=== PATIENT | male | born 1950 | race Caucasian/White ===

== ENCOUNTER 2021-03-04 00:44 | Inpatient (IN) | payer MEDICARE ==
[2021-03-04] MEDS ORDERED: ASPIRIN 81 MG PO STA (00:59)
[2021-03-04] MEDS ORDERED: HEPARIN SODIUM 1,000 UN/ML (10ML VL) IV ONE (00:59)
[2021-03-04] MEDS ORDERED: NITROGLYCERIN SL TABS 0.4 MG TAB SUBLINGUAL PRN ×2 (00:59→04:00)
[2021-03-04] MEDS ORDERED: MORPHINE SULFATE 4 MG/ML SYRINGE IV PRN (00:59)
[2021-03-04] MEDS ORDERED: HEPARIN SOD,PORK IN 0.45% NACL 25,000 UNIT in 0.45% NACL 1 250ML.BAG IV SCH (01:00)
--- NOTE | 2021-03-04 01:10 | ED ---
Chest Pain HPI - General Chief Complaint: Chest Pain Stated Complaint: Chest Pain Time Seen by Provider: 03/04/21 00:53 Source: patient, RN notes reviewed, old records reviewed Mode of arrival: wheelchair Limitations: no limitations - History of Present Illness Initial Comments: This is a 70-year-old male DF for evaluation. Patient comes in for chest pain starting after dinner tonight. Patient has history of high blood pressure high cholesterol previous CABG. Patient has no recent travel history or sick contacts no headache, patient's presenting with chest pain no shortness of breath and no diaphoresis. Patient states this pain is bad but not as versus the first event. No fevers MD Complaint: chest pain -: hour(s) Onset: during rest, after eating Pain Location: substernal, left chest Pain Radiation: none Severity: moderate Severity scale (1-10): 6 Quality: aching, heaviness Consistency: constant Improves With: nothing Worsens With: nothing Anginal Symptoms: sense of impending doom Other Symptoms: palpitations Treatments Prior to Arrival: none - Related Data Allergies Allergy/AdvReac Type Severity Reaction Status Date / Time No Known Allergies Allergy Verified 03/04/21 00:48 Review of Systems ROS Statement: Those systems with pertinent positive or pertinent negative responses have been documented in the HPI. ROS Other: All systems not noted in ROS Statement are negative. Past Medical History Past Medical History: Hyperlipidemia, Hypertension History of Any Multi-Drug Resistant Organisms: None Reported Past Surgical History: Ablation, Coronary Bypass/CABG Past Psychological History: No Psychological Hx Reported Smoking Status: Never smoker Past Alcohol Use History: None Reported Past Drug Use History: None Reported General Exam Limitations: no limitations General appearance: alert, anxious, in distress Head exam: Present: atraumatic, normocephalic, normal inspection Eye exam: Present: normal appearance, PERRL, EOMI. Absent: scleral icterus, conjunctival injection, periorbital swelling ENT exam: Present: normal exam, mucous membranes moist Neck exam: Present: normal inspection. Absent: tenderness, meningismus, lymphadenopathy Respiratory exam: Present: normal lung sounds bilaterally. Absent: respiratory distress, wheezes, rales, rhonchi, stridor Cardiovascular Exam: Present: regular rate, normal rhythm, normal heart sounds. Absent: systolic murmur, diastolic murmur, rubs, gallop, clicks GI/Abdominal exam: Present: soft, normal bowel sounds. Absent: distended, tenderness, guarding, rebound, rigid Extremities exam: Present: normal inspection, full ROM, normal capillary refill. Absent: tenderness, pedal edema, joint swelling, calf tenderness Back exam: Present: normal inspection Neurological exam: Present: alert, oriented X3, CN II-XII intact Psychiatric exam: Present: normal affect, normal mood Skin exam: Present: warm, dry, intact, normal color. Absent: rash Course Vital Signs 03/04/21 00:45 Temperature 97.4 F L Pulse Rate 68 Respiratory 18 Rate Blood Pressure 141/89 O2 Sat by Pulse 99 Oximetry - Reevaluation(s) Reevaluation #1: 03/04/21 00:59 : Code STEMI paged on patient arrival to the ER Reevaluation #2: 03/04/21 01:11 Spoke with cardiology, where patient, [facility] is aware Reevaluation #3: 03/04/21 01:11 Patient remains calm throughout emergency department stay - Consultations Consultation #1: Spoke with cardiology will admit to the [facility] Chest Pain MDM - Differential Diagnosis AMI, ACS - MDM 70 male DF for evaluation patient Dese for evaluation of chest pain patient is on a few hours of chest pain currently that is unremitting. Patient has positive ST elevation on EKG and will be admitted to the [facility] for further cardiology evaluation management Critical Care Time Critical Care Time: Yes Total Critical Care Time: 31 Disposition Clinical Impression: Chest pain, ST elevation myocardial infarction (STEMI) Disposition: ADMITTED IP TO THIS HOSP Condition: Fair Is patient prescribed a controlled substance at d/c from ED?: No
[2021-03-04] MEDS: SODIUM CHLORIDE 0.9% 1,000 ML IV SCH ×4 (01:18→16:54)
[2021-03-04] MEDS ORDERED: ATORVASTATIN 40 MG TAB PO STA (01:25)
[2021-03-04] MEDS ORDERED: SODIUM CHLORIDE 0.9% 1,000 ML IV ONE (01:33)
--- NOTE | 2021-03-04 01:33 | XR ---
EXAM: XR Chest, 1 View CLINICAL HISTORY: ITS.REASON XR Reason: Chest Pain TECHNIQUE: Frontal view of the chest. COMPARISON: No relevant prior studies available. FINDINGS: Lungs: No significant abnormality. No consolidation. Pleural space: No significant abnormality. No pneumothorax. Heart: Borderline sized cardiomediastinal silhouette. Mediastinum: Postoperative mediastinum. Bones/joints: No acute osseous abnormality. Tubes, lines and devices: Telemetry leads overlie the patient. Upper abdomen: Elevated right hemidiaphragm. IMPRESSION: No acute cardiopulmonary process.
[2021-03-04] MEDS ORDERED: LIDOCAINE 1% INJ 10MG/ML (20 ML MDV) ONE (01:35)
[2021-03-04] MEDS ORDERED: fentaNYL (PF) 50 MCG/ML 2 ML AMP ONE (01:36)
[2021-03-04] MEDS ORDERED: LIDOCAINE 1% INJ 10MG/ML (20 ML MDV) SQ ONE (01:45)
[2021-03-04] MEDS ORDERED: fentaNYL (PF) 50 MCG/ML 2 ML AMP IV ONE ×2 (01:45)
[2021-03-04] MEDS ORDERED: MIDAZOLAM 2 MG/2 ML VIAL IV ONE (01:46)
[2021-03-04 01:51] LABS: Basophils % (A) 1 %; Eosinophils # (A) 0.2 k/uL (0-0.7); Eosinophils % (A) 4 %; HCT 42.7 % (39.0-53.0); Lymphocytes # (A) 1.9 k/uL (1.0-4.8); Lymphocytes % (A) 30 %; MCH 32.6 pg (25.0-35.0); MCHC 35.1 g/dL (31.0-37.0); Mean Platelet Volume 8.6; Monocytes # (A) 0.5 k/uL (0-1.0); Monocytes % (A) 8 %; Neutrophils # (A) 3.6 k/uL (1.3-7.7); Neutrophils % (A) 56 %; Platelet Count 173 k/uL (150-450); RDW 12.5 % (11.5-15.5); WBC 6.4 k/uL (3.8-10.6)
[2021-03-04] MEDS ORDERED: CLOPIDOGREL 75 MG TAB ONE (01:55)
[2021-03-04] MEDS ORDERED: CLOPIDOGREL 75 MG TAB PO ONE (01:57)
[2021-03-04] MEDS ORDERED: HEPARIN SODIUM 1,000 UN/ML (10ML VL) ONE (01:57)
[2021-03-04] MEDS: HEPARIN SODIUM 1,000 UN/ML (10ML VL) IV ONE ×2 (01:59→02:14)
[2021-03-04] MEDS: NITROGLYCERIN 1000MCG/10ML SYRINGE INTRACORON ONE ×2 (02:02→02:09)
[2021-03-04 02:07] LABS: Albumin 4.1 g/dL (3.5-5.0); Calcium 9.2 mg/dL (8.4-10.2); Magnesium 1.9 mg/dL (1.6-2.3); Potassium 4.5 mmol/L (3.5-5.1); Total Bilirubin 0.5 mg/dL (0.2-1.3); Total Protein 6.9 g/dL (6.3-8.2)
[2021-03-04] MEDS ORDERED: IOPAMIDOL-370 125ML BTL INJ ONE (02:29)
[2021-03-04 02:40] LABS: INR 0.9 (<1.2); Partial Thromboplastin Time 23.7 sec (22.0-30.0); Prothrombin Time 9.8 sec (9.0-12.0)
[2021-03-04] MEDS ORDERED: IOPAMIDOL-370 100ML BTL INJ ONE (02:40)
[2021-03-04 03:00] LABS: Glucose,Whole Blood 93 mg/dL (75-99)
[2021-03-04 03:02] LABS: Creatine Kinase MB 1.6 ng/mL (0.0-2.4)
--- NOTE | 2021-03-04 03:30 | CT ---
EXAM: CT Head Without Intravenous Contrast CLINICAL HISTORY: ITS.REASON CT Reason: CODE STROKE TECHNIQUE: Axial computed tomography images of the head/brain without intravenous contrast. CTDI is 49 mGy and DLP is 1158 mGy-cm. This CT exam was performed using one or more of the following dose reduction techniques: automated exposure control, adjustment of the mA and/or kV according to patient size, and/or use of iterative reconstruction technique. COMPARISON: No relevant prior studies available. FINDINGS: Brain: No hemorrhage or mass effect. Ventricles: No hydrocephalus. Bones/joints: Unremarkable. Soft tissues: Unremarkable. Sinuses: Unremarkable. Mastoid air cells: Clear. IMPRESSION: No acute hemorrhage, hydrocephalus, or mass effect.
[2021-03-04 03:35] LABS: Glucose,Whole Blood 95 mg/dL (75-99)
[2021-03-04 03:37] LABS: Troponin I 0.066 ng/mL (0.000-0.034)
[2021-03-04] MEDS ORDERED: RX INFO: IV CONTRAST WAS GIVEN 1 EACH MISC MISCELLANE PRN (03:39)
--- NOTE | 2021-03-04 03:39 | P.PRCINT ---
Percutaneous Coronary Int. - Percutaneous Coronary Intervention Percutaneous Coronary Intervention: PROCEDURES PERFORMED: Bilateral coronary angiography, aortic angiography, ESCALANTE to LAD angiography, PCI of proximal RCA with 4.0 x 18 mm Xience ADRIAN and PCI of mid to distal RCA with a 4.0 x 12 mm Xience ADRIAN INDICATION: Inferior STEMI HISTORY: Patient is a pleasant 70-year-old male with history of hypertension, paroxysmal atrial fibrillation, coronary artery disease status post CABG approximately 18 months ago who presented with chest pain which began at approximately 11 PM, 2 hours prior to arrival. He has a history of three-vessel CABG performed in [place] 18 months ago and states one of the other arteries had to 40% blockages which were not bypassed. He also had a A. fib ablation approximate 6 weeks ago which was uneventful. He was found to have inferior STEMI and catheterization laboratory was activated. CONSENT:I have discussed the risks, benefits and alternative therapies for the above-mentioned procedure and for both sedation/analgesia as well as necessary blood product administration, if indicated, as they pertain to this patient. The patient has indicated understanding and acceptance of the risks and procedures discussed. PROCEDURE: After the risks, benefits and alternatives of the above mentioned procedure explained in detail with the patient, informed consent was obtained. Patient was taken to the catheterization lab and prepped and draped in usual fashion. 1% lidocaine was used to anesthetize the right femoral artery. Using ultrasound guidance and micropuncture technique, a 6-Canadian sheath was placed in the right femoral artery using modified Seldinger technique. Left coronary angiography was performed with a 6-Canadian JL 4.0 catheter and right coronary angiography was performed with a 6-Canadian JR4 catheter in various views. A 5- Canadian pigtail catheter was advanced and aortogram was performed in the LAD projection which showed no patent SVG grafts. The decision was made to perform PCI of the RCA. A 6-Canadian AL 0.75 guide was used to engage RCA. A 0.014 BMW wire was advanced into the distal RCA. The proximal lesion was predilated with a 2.5 x 12 mm balloon. Next a 4.0 x 18 mm Xience ADRIAN was deployed. This was postdilated with a 4.0 x 12 mm noncompliant balloon. There was a mid to distal 85% RCA stenosis at the takeoff of an acute marginal branch. This was treated with a 4.0 x 12 mm Xience ADRIAN with the help of a Guideliner. The stent was postdilated with a 4.0 x 18 mm balloon. Preintervention there was 100% stenosis with RHETT 0 flow and post intervention there was 0% stenosis with RHETT 3 flow. The right femoral angiogram showed anatomy compatable with closure and a 6Fr Angioseal was placed with hemostasis achieved. The patient tolerated the procedure well however was noted to be confused toward the end of the procedure, no focal neurologic deficits however a difference compared with earlier in the case, A+O to person and hospital however unable to tell why he came to hospital. Patient was transported back to the CT scan and then to ICU in stable condition. Conscious Sedation: Patient was monitored under the direct supervision of vision of myself for conscious sedation using Versed and fentanyl for a total duration of 74 minutes HEMODYNAMICS: Aorta: 110/64 SELECTIVE CORONARY ARTERIOGRAPHY: LEFT MAIN: The left main is a large caliber vessel which bifurcates into the LAD and circumflex. There is 10- 20% distal left main stenosis. LEFT ANTERIOR DESCENDING CORONARY ARTERY: LAD is a large caliber vessel which wraps around to the apex. There is a proximal 95% LAD stenosis. The LAD gives off a high diagonal 1 branch and then very close by gives off a second diagonal 2 branch. Diagonal 1 appears to have a proximal 70% stenosis. Diagonal to appears to have a 50% proximal stenosis. There is competitive flow of the mid to distal LAD with mild luminal irregularities of the mid to distal LAD. There is no competitive flow noted in the diagonal branches. LEFT CIRCUMFLEX CORONARY ARTERY: Left circumflex is a moderate caliber vessel which has a proximal 90% stenosis involving the OM 1 branch and the more distal circumflex. OM1 branch has a mid 70% stenosis, likely the area of previous bypass with what appears to be tenting of the area. There is no competitive flow noted to the circumflex or OM1. The more distal circumflex gives off 2 small caliber OM 2 and 3 branches. RIGHT CORONARY ARTERY: The right coronary artery is a large caliber vessel which gives off a PDA and PLV branch and is the dominant vessel. There is 100% proximal RCA stenosis. There is an 85% mid to distal RCA stenosis at the level of a small caliber acute marginal branch. SVG to OM1: occluded SVG to diagonal branch: occluded ESCALANTE to LAD: widely patent, there is backfilling of a diagonal 2 branch. Mild luminal irregularities of the distal LAD. AORTOGRAM: There is no dissection or aneurysm. There is no aortic insufficiency. There are no SVG grafts noted. FINAL IMPRESSION: 1. Inferior STEMI s/p PCI of proximal RCA with 4.0 x 18 mm Xience ADRIAN and PCI of mid to distal RCA with a 4.0 x 12 mm Xience ADRIAN 2. CAD as described above including 95% proximal LAD, diagonal 1 70% stenosis, circumflex 90% stenosis and OM1 70% stenosis. 3. Patent ESCALANTE to LAD with SVG x 2 occluded by aortogram 4. Confusion noted to be worse during procedure, no focal deficit. Rule out CVA vs metabolic, anesthetic. PLAN: 1. Aggressive risk factor modification per most recent ACC/AHA guidelines. 2. Continue triple therapy for 1 month then would decrease to Plavix and NOAC for 12 months. 3. Code stroke called and will pursue work up of possible CVA with altered mental status.
[2021-03-04] MEDS ORDERED: ATROPINE SULFATE 0.1 MG/ML 10ML SYRINGE IV PRN (04:00)
[2021-03-04] MEDS ORDERED: MAG HYDROX/AL HYDROX/SIMETH 30 ML CUP PO PRN (04:00)
[2021-03-04 04:30] LABS: Albumin 3.9 g/dL (3.5-5.0); Calcium 8.9 mg/dL (8.4-10.2); Potassium 4.4 mmol/L (3.5-5.1); Total Bilirubin 0.6 mg/dL (0.2-1.3); Total Protein 6.6 g/dL (6.3-8.2)
[2021-03-04] MEDS: ACETAMINOPHEN TAB 325 MG TAB PO PRN ×4 (05:52→20:52)
[2021-03-04] MEDS ORDERED: ONDANSETRON 4 MG/2 ML VIAL IVP PRN (09:24)
[2021-03-04] MEDS: ATORVASTATIN 80 MG TAB PO SCH (09:44)
[2021-03-04] MEDS: ASPIRIN 81 MG PO SCH (09:44)
[2021-03-04] MEDS: CLOPIDOGREL 75 MG TAB PO SCH (09:44)
[2021-03-04] MEDS: METOPROLOL TARTRATE 25 MG TAB PO SCH ×2 (09:57→20:51)
[2021-03-04 10:23] VITALS: BMI 29.7
[2021-03-04 10:34] LABS: Cholesterol 130 mg/dL (<200); HDL Cholesterol 30 mg/dL (40-60); LDL Cholesterol,Calculated 72 mg/dL (0-99); Triglycerides 140 mg/dL (<150)
--- NOTE | 2021-03-04 10:53 | P.CNNES ---
History of Present Illness Consult date: 03/04/21 Requesting physician: Anahi Penn Reason for Consult: code stroke History of Present Illness: This is a 70-year-old gentleman with medical history of hypertention, dyslipidemia, coronary artery disease status post CABG 2018), cardiac ablation (6 weeks ago) who presented that to the emergency department on 03/04/2021 for chest pain. It was noted that the patient had a STEMI and he underwent PCI on 03/04/2021. During the procedure was noted the patient had worsening of his confusion as a result a stroke code was activated to rule out whether it was truly a stroke versus metabolic versus anesthetic use. Per the patient's nurse patient received morphine preoperatively, 25 g of fentanyl and 1 mg of the Versed. He shouldn't the received IV contrast intraoperatively and the BUN was 20 and a creatinine was 1.17 post op Per the overnight nurse he stated the patient had confusion and upper extremity ataxia. As a result CT of the head was done and there was a reported as no acute hemorrhage, hydrocephalus or mass effect. It seems that the patient has history of hallucination and confusion but it got worse postop. NIH was reevaluated it was a 0. Since was 0 and had recent procedure no IV tpa. No CTA head or neck were performed. Patient denies any history of strokes or TIAs in the past. He feels he is back to baseline. He stated that in the past when he was on no cortical he was having hallucination while sleeping and then once he was off of that he had no further hallucination. Patient home medication is aspirin 81 daily, Lipitor 40 mg daily at bedtime, Xarelto 25 mg daily at bedtime metoprolol, losartan and Benadryl. Some other workup consisted of: Initial troponin was 0.06 and a repeat it was 6.1 around 332 and around 737 it was at 13.7. The POC glucose is 93 and last one was 95. Coagulation study: Initial: PT: I 0.8, INR 0.9, PTT of 23.7. The last PTT is at 52.1. Coronavirus PCR is not detected. Review of Systems Review of system: The 12 point system was reviewed and apparent positive and negative per HPI. Past Medical History Past Medical History: Hyperlipidemia, Hypertension History of Any Multi-Drug Resistant Organisms: None Reported Past Surgical History: Ablation, Coronary Bypass/CABG Additional Past Surgical History / Comment(s): CABG (December,), Ablation (December,). Past Anesthesia/Blood Transfusion Reactions: Previous Problems w/ Anesthesia Additional Past Anesthesia/Blood Transfusion Reaction / Comment(s): "i like to stay asleep" Past Psychological History: No Psychological Hx Reported Smoking Status: Never smoker Past Alcohol Use History: None Reported Past Drug Use History: None Reported - Past Family History Father Family Medical History: Cancer Additional Family Medical History / Comment(s): skin cancer Mother Additional Family Medical History / Comment(s): "two intestine blockages". Son(s) Family Medical History: Diabetes Mellitus Additional Family Medical History / Comment(s): type one Medications and Allergies Home Medications Medication Instructions Recorded Confirmed Type Aspirin EC [Ecotrin Low Dose] 81 mg PO DAILY 03/04/21 03/04/21 History Atorvastatin [Lipitor] 80 mg PO DAILY #90 tab 03/04/21 Rx Clopidogrel [Plavix] 75 mg PO DAILY #90 tab 03/04/21 Rx Losartan [Cozaar] 12.5 mg PO BID 03/04/21 03/04/21 History Metoprolol Tartrate [Lopressor] 25 mg PO BID 03/04/21 03/04/21 History Rivaroxaban [Xarelto] 20 mg PO HS 03/04/21 03/04/21 History diphenhydrAMINE HCL [Benadryl] 25 mg PO HS 03/04/21 03/04/21 History Allergies Allergy/AdvReac Type Severity Reaction Status Date / Time No Known Allergies Allergy Verified 03/04/21 07:03 Physical Examination - Vital Signs Vital Signs: Vital Signs Temp Pulse Resp BP Pulse Ox 03/04/21 07:00 67 17 110/77 99 03/04/21 06:30 66 15 117/75 98 03/04/21 06:00 67 14 98 03/04/21 05:50 62 17 98 03/04/21 05:40 63 12 121/76 98 03/04/21 05:30 62 11 L 124/79 98 03/04/21 05:20 53 L 7 L 124/79 98 03/04/21 05:10 66 13 124/79 98 03/04/21 05:00 62 6 L 131/82 98 03/04/21 04:50 61 10 L 131/82 99 03/04/21 04:40 61 11 L 131/82 97 03/04/21 04:30 65 8 L 132/90 97 03/04/21 04:20 71 20 98 03/04/21 04:10 65 12 132/90 97 03/04/21 04:00 59 L 11 L 98 03/04/21 03:50 64 16 145/83 99 03/04/21 03:40 97.5 F L 67 16 143/79 98 03/04/21 03:31 74 13 03/04/21 00:45 97.4 F L 68 18 141/89 99 Intake and Output 03/03/21 03/04/21 03/04/21 22:59 06:59 14:59 Intake Total 325 75 Output Total 0 0 Balance 325 75 Intake: IV 325 75 Sodium Chloride 0.9% 1, 225 75 000 ml @ 75 mls/hr IV . [id number] [facility] Rx#:[id number] Output: Urine 0 0 Other: Weight 96.8 kg GENERAL: The patient is lying in bed and is not in acute distress. CHEST: The heart rate is regular rate rhythm. No murmurs to auscultation. No carotid bruit bilaterally. LUNG: Clear to auscultation bilaterally no wheezing noted throughout. Not labored breathing. ABDOMEN/GI: Bowel sounds present in all 4 quadrants. No tenderness to palpation throughout. NEUROLOGICAL: Higher mental function: The patient is awake, alert, oriented to self, place and time. Patient is following commands. No aphasia and no neglect. Cranial nerves: The pupils are round, equal and reactive to light and accommodation. Visual broussard are full to confrontation throughout. Extraocular movement is intact no nystagmus is noted. Facial sensation is normal to touch throughout. The facial strength is normal throughout. Hearing is normal bilaterally to hand rub. Tongue is midline and moved [id number] without any difficulty. No dysarthria is noted. Shoulder shrug is normal bilaterally. Motor: The strength is 5 over 5 throughout. Normal tone and bulk. Cerebellum: Normal finger to nose heel to chin bilaterally. Sensation: Sensation is normal to touch throughout. Reflexes (right/left): 2+ throughout-. Plantars are downgoing bilaterally. Results - Laboratory Findings CBC and BMP: 03/04/21 01:10 03/04/21 03:32 Abnormal Lab Findings: Abnormal Labs 03/04/21 03/04/21 03/04/21 01:10 01:10 03:32 APTT BUN 21 H Glucose 126 H AST Troponin I 0.066 H* 6.110 H* 03/04/21 03/04/21 03/04/21 03:32 03:32 07:37 APTT 52.1 H BUN Glucose 118 H AST 86 H Troponin I 13.700 H* Assessment and Plan Assessment: Episode of transient confusion and ataxia of upper extremity that resolved seems due to medication effect (morphine, fentanyl and ativan)-->toxic encephalopathy. Cannot rule out TIA from cardioembolic (result of procedure especially with ataxia)) Inferior STEMI status post PCI (03/04/2021) Coronary artery disease status post CABG (2018) History of cardiac ablation 6 weeks ago Hyperlipidemia Hypertension Plan: CT of the head was done and there was a reported as no acute hemorrhage, hydrocephalus or mass effect. Currently the patient is on aspirin 81 mg, Plavix 75 mg as well as Lipitor 80 mg daily and he is on them from cardiac perspective which should be sufficient coverage from neurological stand point for secondary stroke prophylaxis (from neurological perspective dual antiplatelets for 21 days then after that to be only on Plavix but will defer that to cardiology team if they want dual antiplateletes). He is also on a heparin drip and will defer management to cardiology team. He is on home Xarelto so will defer use of it to cardiology team. 2-D echo, lipid panel were ordered by the cardiology team are pending I ordered TSH and I consulted the physical therapy night and patient therapy. I ordered carotid duplex. Continue cardiac monitoring. Please avoid any sedative/opiates that will affect patient neurological status. Will defer the rest of the medical management to the cardiology team. The plan is discussed with the cardiology team. Thank you for the consult Boby Garner MD Neuro-Hospitalist Time with Patient: Greater than 30
--- NOTE | 2021-03-04 11:00 | ECHOF ---
Referral Reason: MEASUREMENTS -------- HEIGHT: 180.3 cm WEIGHT: 93.0 kg BP: RVIDd: 3.0 cm (< 3.3) IVSd: 1.1 cm (0.6 - 1.1) LVIDd: 4.7 cm (3.9 - 5.3) LVPWd: 1.2 cm (0.6 - 1.1) IVSs: 1.5 cm LVIDs: 3.9 cm LVPWs: 1.1 cm Ao Diam: 3.7 cm (2.0 - 3.7) AV Cusp: 1.9 cm (1.5 - 2.6) LA Diam: 2.8 cm (2.7 - 3.8) MV EXCURSION: 12.495 mm (> 18.000) MV EF SLOPE: 84 mm/s (70 - 150) EPSS: 1.5 cm MV E Wil: 0.66 m/s MV DecT: 182 ms MV A Wil: 0.44 m/s MV E/A Ratio: 1.52 RAP: 5.00 mmHg RVSP: 18.26 mmHg FINDINGS -------- The left ventricular size is normal. There is mild concentric left ventricular hypertrophy. Overa ll left ventricular systolic function is mildly impaired with, an EF between 45 - 50 %. Basal infer ior LV wall motion is hypokinetic. Basal inferoseptal LV wall motion is hypokinetic. The right ventricle is normal in size. The left atrial size is normal. The right atrial size is normal. The aortic valve is trileaflet and appears structurally normal. The mitral valve is normal. There is trace mitral regurgitation. The tricuspid valve appears structurally normal. Trace tricuspid regurgitation present. Right aba tricular systolic pressure is normal at < 35 mmHg. There is no pulmonic regurgitation present. The aortic root size is normal. IVC Not well visulized. There is no pericardial effusion. CONCLUSIONS -------- 1. The left ventricular size is normal. 2. There is mild concentric left ventricular hypertrophy. 3. Overall left ventricular systolic function is mildly impaired with, an EF between 45 - 50 %. 4. Basal inferior LV wall motion is hypokinetic. 5. Basal inferoseptal LV wall motion is hypokinetic. 6. There is trace mitral regurgitation. 7. Trace tricuspid regurgitation present. 8. There is no pericardial effusion. BATTERY SERVICE TECHNICIAN: Shivani Tony RDCS
--- NOTE | 2021-03-04 11:44 | P.PN ---
Subjective This is a pleasant 70-year-old F medical history significant for coronary artery disease status post bypass grafting while living in [place] 18 months ago with ESCALANTE to LAD, SVG to OM and SVG to D1, paroxysmal atrial fibrillation status post ablation 6 weeks ago, hypertension and dyslipidemia. He follows with Dr. Rodriguez in [facility]. He presented to the ER overnight with symptoms of chest pain and was found to be having an inferior wall PR. He underwent cardiac catheterization revealing 100% occluded proximal RCA, 95% proximal LAD, 70% D1, 90% circumflex, 70% OM1, patent ESCALANTE to LAD, SVGs both occluded. He underwent successful PCI of the proximal RCA. During the procedure he developed confusion. Code stroke was called. Brain CT was unremarkable. Neurology is following. His mentation has improved and is back to baseline. According to the patient he has had this happen before with sedation. Repeat EKG this morning revealed sinus mechanism with improvement of ST changes inferiorly and left bundle type PVC's. Blood pressure 122/79 heart rate 64 afebrile maintaining oxygen saturation on nasal cannula. Laboratory data reviewed, sodium 138, potassium 4.4, creatinine 1.17, troponin trend 0.0 66, 6.11 and 13.7. TSH 3.05. Currently maintained on aspirin 81 mg daily, atorvastatin 80 mg daily, Plavix 75 mg daily and Lopressor 25 mg twice a day. GENERAL: Well-appearing, well-nourished and in no acute distress. NECK: Supple without JVD or thyromegaly. LUNGS: Breath sounds clear to auscultation bilaterally. Respiration equal and unlabored. No wheezes, rales or rhonchi. HEART: Regular rate and rhythm without murmurs, rubs or gallops. S1 and S2 heard. EXTREMITIES: Normal range of motion, no edema. No clubbing or cyanosis. Peripheral pulses intact. Right femoral access site soft, nontender with no evidence of hematoma, ecchymosis or ASSESSMENT Acute inferior wall ST elevated myocardial infarction Coronary artery disease status post bypass grafting Hypertension Dyslipidemia Paroxysmal atrial fibrillation status post ablation PLAN Obtain 2-D echocardiogram and Doppler study to assess cardiac structure and function. 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 Chada-VASC score is 2, consider resuming Xarelto tomorrow if he remains hemodynamically stable. He will likely be on triple therapy for 30 days then discontinue aspirin. Resume losartan 12.5 mg daily tomorrow. Further recommendations to follow based upon clinical course. Nurse Practitioner note has been reviewed, I agree with a documented findings and plan of care. Patient was seen and examined. Objective - Vital Signs Vital signs: Vital Signs Temp 97.5 F L 03/04/21 03:40 Pulse 67 03/04/21 07:00 Resp 17 03/04/21 07:00 BP 110/77 03/04/21 07:00 Pulse Ox 99 03/04/21 07:00 Intake & Output 03/03/21 03/04/21 03/04/21 18:59 06:59 18:59 Intake Total 325 75 Output Total 0 0 Balance 325 75 Weight 96.8 kg Intake: IV 325 75 Sodium Chloride 0.9% 1, 225 75 000 ml @ 75 mls/hr IV . [id number] [facility] Rx#:[id number] Output: Urine 0 0 - Labs CBC & Chem 7: 03/04/21 01:10 03/04/21 03:32 Labs: Abnormal Lab Results - Last 24 Hours (Table) 03/04/21 03/04/21 03/04/21 Range/Units 01:10 01:10 03:32 APTT (22.0-30.0) sec BUN 21 H (9-20) mg/dL Glucose 126 H (74-99) mg/dL AST (17-59) U/L Troponin I 0.066 H* 6.110 H* (0.000-0.034) ng/mL 03/04/21 03/04/21 03/04/21 Range/Units 03:32 03:32 07:37 APTT 52.1 H (22.0-30.0) sec BUN (9-20) mg/dL Glucose 118 H (74-99) mg/dL AST 86 H (17-59) U/L Troponin I 13.700 H* (0.000-0.034) ng/mL
--- NOTE | 2021-03-04 13:03 | US ---
EXAMINATION TYPE: US carotid duplex BILAT DATE OF EXAM: 03/04/2021 COMPARISON: NONE CLINICAL HISTORY: tia. EXAM MEASUREMENTS: RIGHT: Peak Systolic Velocity (PSV) cm/sec ----- Right CCA: 96.8 ----- Right ICA: 69.3 ----- Right ECA: 87.4 ICA/CCA ratio: 0.7 RIGHT: End Diastole cm/sec ----- Right CCA: 19.5 ----- Right ICA: 15.7 ----- Right ECA: 0.0 LEFT: Peak Systolic Velocity (PSV) cm/sec ----- Left CCA: 87.2 ----- Left ICA: 89.2 ----- Left ECA: 92.5 ICA/CCA ratio: 1.0 LEFT: End Diastole cm/sec ----- Left CCA: 10.3 ----- Left ICA: 20.9 ----- Left ECA: 13.3 VERTEBRALS (direction of flow): Right Vertebral: Antegrade Left Vertebral: Antegrade Mild plaque with no significant velocity elevations. IMPRESSION: 1. Mild atherosclerotic plaque with no significant hemodynamic stenosis as visualized. Criteria for Assigning % of Stenosis / Diameter reduction (Estimation based on the indirect measurements of the internal carotid artery velocities (ICA PSV). 1. Normal (no stenosis)=ICA PSV < 125 cm/s: ratio < 2.0: ICA EDV<40 cm/s. 2. Less than 50% stenosis=ICA PSV < 125 cm/s: ratio < 2.0: ICA EDV<40 cm/s. 3. 50 to 69% stenosis=ICA PSV of 125 to 230 cm/s: ration 2.0 ? 4.0: ICA EDV 40-100 cm/s. 4. Greater than 70% stenosis to near occlusion= ICA PSV > 230 cm/s: ratio > 4.0: ICA EDV > 100 cm/s. 5. Near occlusion= ICA PSV velocities may be low or undetectable: variable ratio and ICA EDV. 6. Total occlusion=unable to detect flow.
--- NOTE | 2021-03-04 14:29 | P.HPCAR ---
History of Present Illness This is Dr. Oglesby dictating an H/P on this patient The patient was interviewed and examined IMPRESSION / ASSESSMENT: Acute inferior wall WI, ST elevation History of coronary artery bypass grafting about 1-1/2 years back in [place] Mild Hypertension History of atrial fibrillation (unknown whether paroxysmal a persistent) status post ablation to 3 months back in [place] TONA VASC score is at least 2, likely 3 PLAN: Proceed with urgent coronary angiography. Discussed with the patient Femoral approach Patient states that in [place]. Problems with the radial approach access HPI Impression started experiencing a burning discomfort in the chest around suppertime. The discomfort persisted and later he had interscapular discomfort Aspirin and pain medications did not help. GI medications did not help His thought he did not look good and brought him to the hospital In the hospital the EKG showed ST elevation in the inferior leads with ST depression in V1 and V2 and subtle ST depressions in lead 1 and aVL ROS: No fever chills or rigors, no cough, phlegm or expectoration, no nausea, vomiting or diarrhea, no hematuria, dysuria, no musculoskeletal complaints, no strokes or seizures, no skin lesions. EXAMINATION: 141/89, 143/79 Breath sounds are clear no rhonchi no crackles Heart sounds S1 and S2 are normal Abdomen soft nontender Extremities warm no edema REVIEW OF LABS, ECG & MEDICAL DATA COVID Negative Past history of coronary artery bypass grafting 18 months back in [place] Patient is on losartan, low-dose, likely mild hypertension He is on Cardizem drip to medical treatment He is on xarelto was told to stop Xarelto 2 months after his A. fib ablation He took it last night Physical Exam Vitals: Vital Signs Temp Pulse Resp BP Pulse Ox 03/04/21 10:00 64 10 L 122/79 96 03/04/21 09:00 68 16 103/78 97 03/04/21 08:00 98.2 F 63 11 L 135/63 96 03/04/21 07:00 67 17 110/77 99 03/04/21 06:30 66 15 117/75 98 03/04/21 06:00 67 14 98 03/04/21 05:50 62 17 98 03/04/21 05:40 63 12 121/76 98 03/04/21 05:30 62 11 L 124/79 98 03/04/21 05:20 53 L 7 L 124/79 98 03/04/21 05:10 66 13 124/79 98 03/04/21 05:00 62 6 L 131/82 98 03/04/21 04:50 61 10 L 131/82 99 03/04/21 04:40 61 11 L 131/82 97 03/04/21 04:30 65 8 L 132/90 97 03/04/21 04:20 71 20 98 03/04/21 04:10 65 12 132/90 97 03/04/21 04:00 59 L 11 L 98 03/04/21 03:50 64 16 145/83 99 03/04/21 03:40 97.5 F L 67 16 143/79 98 03/04/21 03:31 74 13 03/04/21 00:45 97.4 F L 68 18 141/89 99 Intake and Output 03/03/21 03/04/21 03/04/21 22:59 06:59 14:59 Intake Total 325 300 Output Total 0 300 Balance 325 0 Intake: IV 325 300 Sodium Chloride 0.9% 1, 225 300 000 ml @ 75 mls/hr IV . [id number] [facility] Rx#:[id number] Output: Urine 0 300 Other: # Voids 1 Weight 96.8 kg 96.8 kg Past Medical History Past Medical History: Hyperlipidemia, Hypertension History of Any Multi-Drug Resistant Organisms: None Reported Past Surgical History: Ablation, Coronary Bypass/CABG Additional Past Surgical History / Comment(s): CABG (December,), Ablation (December,). Past Anesthesia/Blood Transfusion Reactions: Previous Problems w/ Anesthesia Additional Past Anesthesia/Blood Transfusion Reaction / Comment(s): "i like to stay asleep" Past Psychological History: No Psychological Hx Reported Smoking Status: Never smoker Past Alcohol Use History: None Reported Past Drug Use History: None Reported - Past Family History Father Family Medical History: Cancer Additional Family Medical History / Comment(s): skin cancer Mother Additional Family Medical History / Comment(s): "two intestine blockages". Son(s) Family Medical History: Diabetes Mellitus Additional Family Medical History / Comment(s): type one Physical Examination Vital Signs Temp Pulse Resp BP Pulse Ox 03/04/21 10:00 64 10 L 122/79 96 03/04/21 09:00 68 16 103/78 97 03/04/21 08:00 98.2 F 63 11 L 135/63 96 03/04/21 07:00 67 17 110/77 99 03/04/21 06:30 66 15 117/75 98 03/04/21 06:00 67 14 98 03/04/21 05:50 62 17 98 03/04/21 05:40 63 12 121/76 98 03/04/21 05:30 62 11 L 124/79 98 03/04/21 05:20 53 L 7 L 124/79 98 03/04/21 05:10 66 13 124/79 98 03/04/21 05:00 62 6 L 131/82 98 03/04/21 04:50 61 10 L 131/82 99 03/04/21 04:40 61 11 L 131/82 97 03/04/21 04:30 65 8 L 132/90 97 03/04/21 04:20 71 20 98 03/04/21 04:10 65 12 132/90 97 03/04/21 04:00 59 L 11 L 98 03/04/21 03:50 64 16 145/83 99 03/04/21 03:40 97.5 F L 67 16 143/79 98 03/04/21 03:31 74 13 03/04/21 00:45 97.4 F L 68 18 141/89 99 Intake and Output 03/03/21 03/04/21 03/04/21 22:59 06:59 14:59 Intake Total 325 300 Output Total 0 300 Balance 325 0 Intake: IV 325 300 Sodium Chloride 0.9% 1, 225 300 000 ml @ 75 mls/hr IV . [id number] [facility] Rx#:[id number] Output: Urine 0 300 Other: # Voids 1 Weight 96.8 kg 96.8 kg Results 03/04/21 01:10 03/04/21 03:32 Cardiac Enzymes 03/04/21 03/04/21 03/04/21 Range/Units 01:10 01:10 03:32 AST 32 (17-59) U/L CK-MB (CK-2) 1.6 (0.0-2.4) ng/mL Troponin I 0.066 H* 6.110 H* (0.000-0.034) ng/mL 03/04/21 03/04/21 Range/Units 03:32 07:37 AST 86 H (17-59) U/L CK-MB (CK-2) (0.0-2.4) ng/mL Troponin I 13.700 H* (0.000-0.034) ng/mL Coagulation 03/04/21 03/04/21 Range/Units 01:10 03:32 PT 9.8 (9.0-12.0) sec APTT 23.7 52.1 H (22.0-30.0) sec Lipids 03/04/21 Range/Units 01:13 Triglycerides 140 (<150) mg/dL Cholesterol 130 (<200) mg/dL HDL Cholesterol 30 L (40-60) mg/dL CBC 03/04/21 Range/Units 01:10 WBC 6.4 (3.8-10.6) k/uL RBC 4.60 (4.30-5.90) m/uL Hgb 15.0 (13.0-17.5) gm/dL Hct 42.7 (39.0-53.0) % Plt Count 173 (150-450) k/uL Comprehensive Metabolic Panel 03/04/21 03/04/21 Range/Units 01:10 03:32 Sodium 137 138 (137-145) mmol/L Potassium 4.5 4.4 (3.5-5.1) mmol/L Chloride 103 105 (98-107) mmol/L Carbon Dioxide 29 23 (22-30) mmol/L BUN 21 H 20 (9-20) mg/dL Creatinine 1.21 1.17 (0.66-1.25) mg/dL Glucose 126 H 118 H (74-99) mg/dL Calcium 9.2 8.9 (8.4-10.2) mg/dL AST 32 86 H (17-59) U/L ALT 30 30 (4-49) U/L Alkaline Phosphatase 114 119 (38-126) U/L Total Protein 6.9 6.6 (6.3-8.2) g/dL Albumin 4.1 3.9 (3.5-5.0) g/dL Current Medications Generic Name Dose Route Start Last Admin Trade Name Freq PRN Reason Stop Dose Admin Acetaminophen 650 mg 03/04/21 05:10 03/04/21 12:24 Acetaminophen Tab 325 Mg Tab PO 650 mg Q4HR PRN Administration Fever and/ or Pain Al Hydroxide/Mg Hydroxide 30 ml 03/04/21 04:00 Mag Hydrox/Al Hydrox/Simeth 30 Ml Cup PO Q4HR PRN Heartburn Aspirin 81 mg 03/04/21 09:00 03/04/21 09:44 Aspirin 81 Mg PO 81 mg DAILY KARLA Administration Atorvastatin Calcium 80 mg 03/04/21 09:00 03/04/21 09:44 Atorvastatin 80 Mg Tab PO 80 mg DAILY KARLA Administration Atropine Sulfate 0.5 mg 03/04/21 04:00 Atropine Sulfate 0.1 Mg/Ml 10ml Syringe IV ONCE PRN Symptomatic Bradycardia Clopidogrel Bisulfate 75 mg 03/04/21 09:00 03/04/21 09:44 Clopidogrel 75 Mg Tab PO 75 mg DAILY KARLA Administration Sodium Chloride 1,000 mls @ 100 mls/hr 03/04/21 01:00 03/04/21 09:38 Saline 0.9% IV Not Given .Q10H KARLA Sodium Chloride 1,000 mls @ 75 mls/hr 03/04/21 03:45 03/04/21 05:52 Saline 0.9% IV 75 mls/hr .[id number] KARLA Administration Losartan Potassium 12.5 mg 03/05/21 09:00 Losartan 25 Mg Tab PO DAILY KARLA Metoprolol Tartrate 25 mg 03/04/21 09:00 03/04/21 09:57 Metoprolol Tartrate 25 Mg Tab PO 25 mg BID KARLA Administration Miscellaneous Information 1 each 03/04/21 03:39 Rx Info: Iv Contrast Was Given 1 Each Misc MISCELLANE 03/06/21 03:39 DAILY PRN Per Protocol Morphine Sulfate 4 mg 03/04/21 00:59 03/04/21 01:18 Morphine Sulfate 4 Mg/Ml Syringe IV 4 mg Q4HR PRN Administration Chest Pain Nitroglycerin 0.4 mg 03/04/21 00:59 03/04/21 01:19 Nitroglycerin Sl Tabs 0.4 Mg Tab SUBLINGUAL 0.4 mg Q5M PRN Administration Chest Pain Nitroglycerin 0.4 mg 03/04/21 04:00 Nitroglycerin Sl Tabs 0.4 Mg Tab SUBLINGUAL Q5M PRN Chest Pain Ondansetron HCl 4 mg 03/04/21 09:24 03/04/21 09:44 Ondansetron 4 Mg/2 Ml Vial IVP 4 mg Q6HR PRN Administration Nausea And Vomiting Intake and Output 03/03/21 03/04/21 03/04/21 22:59 06:59 14:59 Intake Total 325 300 Output Total 0 300 Balance 325 0 Intake: IV 325 300 Sodium Chloride 0.9% 1, 225 300 000 ml @ 75 mls/hr IV . [id number] [facility] Rx#:[id number] Output: Urine 0 300 Other: # Voids 1 Weight 96.8 kg 96.8 kg Patient Weight 03/05/21 06:59 Weight 96.8 kg 03/04/21 01:10 03/04/21 03:32
--- NOTE | 2021-03-04 22:16 | P.HPIM ---
History of Present Illness H&P Date: 03/04/21 Chief Complaint: Chest Pain Patient is a 70-year-old male with a known history of coronary artery disease status post CABG in December 2019 and cardiac ablation in December 2020 at [facility] Hypertension, hyperlipidemia and on anticoagulation with Xarelto for 2 months post ablation-stopped 2 days ago presents to ER due to complaints of chest pain. Patient flew from [place] recently and since then he has been working in the [employer]. Yesterday afternoon patient felt dizzy while working in the yard. Around 11 PM patient started having chest pain while watching TV ass ociated dizziness and sometimes radiating to the back and some tingling sensation in the left arm. Patient did take aspirin which did not help him and came to ER for evaluation. Patient does not have sublingual nitroglycerin at home. In the ER patient was found to have ST elevation in the inferior leads with ST depressions in V1 and V2. Started on heparin drip and patient was immediately taken to cardiac catheterization. Patient is currently status post PCI of proximal RCA. He does have CAD including 95% proximal LAD and 70% stenosis circumflex 90% stenosis and OM1 70% stenosis. Code stroke was called from the Accounting Administrative Assistant due to altered mental status during the procedure. CT head showed no acute hemorrhage, hydrocephalus or mass-effect. Laboratory data showed troponin 0 0.066, 6.109, 13.7 TSH 3.05 BUN 21 and creatinine 1.21 Coronavirus PCR not detected. Review of Systems Constitutional: Patient denies any fever or chills . No generalized weakness or weight loss. Abdomen: Patient denied nausea vomiting and diarrhea and abdominal pain. Cardiovascular: Patient denies any chest pain or short of breath no palpitations. Respiratory: patient denied any cough or sputum production. No shortness of breath Neurologic: Patient denied any numbness or tingling headache. Musculoskeletal: Patient denies any complaints of joint swelling or deformity. Skin: Negative Psychiatric: Negative Endocrine: No heat or cold intolerance. No recent weight gain. Genitourinary: No dysuria or hematuria. All other 14 point ROS negative except the above Past Medical History Past Medical History: Hyperlipidemia, Hypertension History of Any Multi-Drug Resistant Organisms: None Reported Past Surgical History: Ablation, Coronary Bypass/CABG Additional Past Surgical History / Comment(s): CABG (December,), Ablation (December,). Past Anesthesia/Blood Transfusion Reactions: Previous Problems w/ Anesthesia Additional Past Anesthesia/Blood Transfusion Reaction / Comment(s): "i like to stay asleep" Past Psychological History: No Psychological Hx Reported Smoking Status: Never smoker Past Alcohol Use History: None Reported Past Drug Use History: None Reported - Past Family History Father Family Medical History: Cancer Additional Family Medical History / Comment(s): skin cancer Mother Additional Family Medical History / Comment(s): "two intestine blockages". Son(s) Family Medical History: Diabetes Mellitus Additional Family Medical History / Comment(s): type one Medications and Allergies Home Medications Medication Instructions Recorded Confirmed Type Aspirin EC [Ecotrin Low Dose] 81 mg PO DAILY 03/04/21 03/04/21 History Atorvastatin [Lipitor] 80 mg PO DAILY #90 tab 03/04/21 Rx Clopidogrel [Plavix] 75 mg PO DAILY #90 tab 03/04/21 Rx Losartan [Cozaar] 12.5 mg PO BID 03/04/21 03/04/21 History Metoprolol Tartrate [Lopressor] 25 mg PO BID 03/04/21 03/04/21 History Rivaroxaban [Xarelto] 20 mg PO HS 03/04/21 03/04/21 History diphenhydrAMINE HCL [Benadryl] 25 mg PO HS 03/04/21 03/04/21 History Allergies Allergy/AdvReac Type Severity Reaction Status Date / Time No Known Allergies Allergy Verified 03/04/21 07:03 Physical Exam Vitals: Vital Signs Temp Pulse Resp BP Pulse Ox 03/04/21 07:00 67 17 110/77 99 03/04/21 06:30 66 15 117/75 98 03/04/21 06:00 67 14 98 03/04/21 05:50 62 17 98 03/04/21 05:40 63 12 121/76 98 03/04/21 05:30 62 11 L 124/79 98 03/04/21 05:20 53 L 7 L 124/79 98 03/04/21 05:10 66 13 124/79 98 03/04/21 05:00 62 6 L 131/82 98 03/04/21 04:50 61 10 L 131/82 99 03/04/21 04:40 61 11 L 131/82 97 03/04/21 04:30 65 8 L 132/90 97 03/04/21 04:20 71 20 98 03/04/21 04:10 65 12 132/90 97 03/04/21 04:00 59 L 11 L 98 03/04/21 03:50 64 16 145/83 99 03/04/21 03:40 97.5 F L 67 16 143/79 98 03/04/21 03:31 74 13 03/04/21 00:45 97.4 F L 68 18 141/89 99 Intake and Output 03/03/21 03/04/21 03/04/21 22:59 06:59 14:59 Intake Total 325 75 Output Total 0 0 Balance 325 75 Intake: IV 325 75 Sodium Chloride 0.9% 1, 225 75 000 ml @ 75 mls/hr IV . [id number] [facility] Rx#:[id number] Output: Urine 0 0 Other: Weight 96.8 kg PHYSICAL EXAMINATION: Patient is lying in the bed comfortably, no acute distress, awake alert and oriented.. HEENT: Normocephalic. Neck is supple. Pupils reactive. Nostrils clear. Oral cavity is moist. Ears reveal no drainage. Neck reveals no JVD, carotid bruits, or thyromegaly. CHEST EXAMINATION: Trachea is central. Symmetrical expansion. Lung broussard clear to auscultation and percussion. CARDIAC: Normal S1, S2 with no gallops. No murmurs ABDOMEN: Soft. Bowel sounds normal. No organomegaly. No abdominal bruits. Extremities: reveal no edema. No clubbing or cyanosis Neurologically awake, alert, oriented x3 with well-coordinated movements. No focal deficits noted Skin: No rash or skin lesions. Psychiatric: Coperative. Nonsuicidal Musculoskeletal: No joint swelling or deformity. Normal range of motion. Results CBC & Chem 7: 03/04/21 01:10 03/04/21 03:32 Labs: Abnormal Lab Results - Last 24 Hours (Table) 03/04/21 03/04/21 03/04/21 Range/Units 01:10 01:10 03:32 APTT (22.0-30.0) sec BUN 21 H (9-20) mg/dL Glucose 126 H (74-99) mg/dL AST (17-59) U/L Troponin I 0.066 H* 6.110 H* (0.000-0.034) ng/mL 03/04/21 03/04/21 03/04/21 Range/Units 03:32 03:32 07:37 APTT 52.1 H (22.0-30.0) sec BUN (9-20) mg/dL Glucose 118 H (74-99) mg/dL AST 86 H (17-59) U/L Troponin I 13.700 H* (0.000-0.034) ng/mL Thrombosis Risk Factor Assmnt - DVT/VTE Prophylaxis DVT/VTE Prophylaxis: Pharmacologic Prophylaxis ordered - Choose All That Apply Each Factor Represents 1 point: History of prior major surgery (<1month), Medical pt on bed rest, Obesity (BMI >25) Other Risk Factors: Yes Each Risk Factor Represents 2 Points: Age 61-74 years Thrombosis Risk Factor Assessment Total Risk Factor Score: 5 Thrombosis Risk Factor Assessment Level: High Risk Assessment and Plan Assessment: Acute inferior wall NE status post stent placement to proximal RCA. Coronary disease history of CABG in December 2019 Paroxysmal atrial fibrillation status post ablation in December 2020 Altered mental status possible metabolic encephalopathy resolved now. ruled out acute CVA. Hypertension Hyperlipidemia DVT prophylaxis patient is already on full anticoagulation. Plan: Patient will be continued on triple therapy with aspirin, Plavix and Xarelto as per cardiology recommendations. Continue with metoprolol and losartan 12.5 mg p.o. daily to be started tomorrow. Continue with telemetry monitoring. Follow- up symptomatically. Patient is currently being closely monitored in the MICU. Cardiology on board. Further recommendations based on the clinical course. Time with Patient: Greater than 30
[2021-03-05] MEDS: ACETAMINOPHEN TAB 325 MG TAB PO PRN ×4 (02:19→20:37)
[2021-03-05 03:44] LABS: Basophils % (A) 0 %; Eosinophils # (A) 0.1 k/uL (0-0.7); Eosinophils % (A) 2 %; HCT 40.3 % (39.0-53.0); HGB 13.8 gm/dL (13.0-17.5); Lymphocytes % (A) 15 %; MCH 31.9 pg (25.0-35.0); MCHC 34.3 g/dL (31.0-37.0); Mean Platelet Volume 8.4; Monocytes # (A) 0.6 k/uL (0-1.0); Monocytes % (A) 9 %; Neutrophils # (A) 4.9 k/uL (1.3-7.7); Neutrophils % (A) 73 %; Platelet Count 135 k/uL (150-450); RBC 4.33 m/uL (4.30-5.90); RDW 12.6 % (11.5-15.5); WBC 6.7 k/uL (3.8-10.6)
[2021-03-05 04:02] LABS: Calcium 8.4 mg/dL (8.4-10.2); Potassium 4.4 mmol/L (3.5-5.1)
[2021-03-05] MEDS: METOPROLOL TARTRATE 25 MG TAB PO SCH ×2 (07:57→20:39)
[2021-03-05] MEDS: CLOPIDOGREL 75 MG TAB PO SCH (07:57)
[2021-03-05] MEDS: LOSARTAN 25 MG TAB PO SCH (07:57)
[2021-03-05] MEDS: ASPIRIN 81 MG PO SCH (07:57)
[2021-03-05] MEDS: ATORVASTATIN 80 MG TAB PO SCH (07:58)
[2021-03-05] MEDS: SODIUM CHLORIDE 0.9% 1,000 ML IV SCH (08:01)
[2021-03-05] MEDS ORDERED: ASPIRIN 325 MG TAB PO SCH (09:00)
--- NOTE | 2021-03-05 12:13 | P.PN ---
Subjective This is a pleasant 70-year-old F medical history significant for coronary artery disease status post bypass grafting while living in [place] 18 months ago with ESCALANTE to LAD, SVG to OM and SVG to D1, paroxysmal atrial fibrillation status post ablation 6 weeks ago, hypertension and dyslipidemia. He follows with Dr. Rodriguez in [facility] and Dr. Poon here in [facility]. He presented to the ER overnight with symptoms of chest pain and was found to be having an inferior wall MT. He underwent cardiac catheterization revealing 100% occluded proximal RCA, 95% proximal LAD, 70% D1, 90% circumflex, 70% OM1, patent ESCALANTE to LAD, SVGs both occluded. He underwent successful PCI of the proximal RCA. During the procedure he developed confusion. Code stroke was called. Brain CT was unremarkable. Neurology is following. His mentation has improved and is back to baseline. According to the patient he has had this happen before with sedation. Repeat EKG this morning revealed sinus mechanism with improvement of ST changes inferiorly and left bundle type PVC's. Blood pressure 122/79 heart rate 64 afebrile maintaining oxygen saturation on nasal cannula. Laboratory data reviewed, sodium 138, potassium 4.4, creatinine 1.17, troponin trend 0.0 66, 6.11 and 13.7. TSH 3.05. Currently maintained on aspirin 81 mg daily, atorvastatin 80 mg daily, Plavix 75 mg daily and Lopressor 25 mg twice a day. 03/05/2021 Pt seen and examined sitting up in bed in no acute distress. He denies chest pain, shortness of breath, dizziness or palpitations. Blood pressure 141/83 heart rate 64 afebrile maintaining oxygen saturation on room air. Laboratory data reviewed, CBC unremarkable, sodium 136, potassium 4.4, creatinine 1.09. Telemetry tracings have been unremarkable. No arrhythmias seen. Echocardiogram obtained revealed EF 45-50%, basal inferior and basal inferoseptal hypokinesia and trace MR. GENERAL: Well-appearing, well-nourished and in no acute distress. NECK: Supple without JVD or thyromegaly. LUNGS: Breath sounds clear to auscultation bilaterally. Respiration equal and unlabored. No wheezes, rales or rhonchi. HEART: Regular rate and rhythm without murmurs, rubs or gallops. S1 and S2 heard. EXTREMITIES: Normal range of motion, no edema. No clubbing or cyanosis. Peripheral pulses intact. Right femoral access site soft, nontender with no evidence of hematoma, ecchymosis or bleeding. ASSESSMENT Acute inferior wall ST elevated myocardial infarction Coronary artery disease status post bypass grafting Hypertension Dyslipidemia Paroxysmal atrial fibrillation status post ablation PLAN Resume xarelto tonight. Continue triple therapy for 1-month. Increase activity and ambulation in the halls. Transfer to today. Further recommendations to follow based upon clinical course. Nurse Practitioner note has been reviewed, I agree with a documented findings and plan of care. Patient was seen and examined. Objective - Vital Signs Vital signs: Vital Signs Temp 97.7 F 03/05/21 08:00 Pulse 64 03/05/21 08:00 Resp 15 03/05/21 08:00 BP 141/83 03/05/21 08:00 Pulse Ox 96 03/05/21 08:00 Intake & Output 03/04/21 03/05/21 03/05/21 18:59 06:59 18:59 Intake Total 900 900 75 Output Total 1250 400 Balance -350 500 75 Weight 96.8 kg 93.3 kg Intake: IV 900 900 75 Sodium Chloride 0.9% 1, 900 900 75 000 ml @ 75 mls/hr IV . [id number] [facility] Rx#:[id number] Output: Urine 1250 400 Other: Voiding Method Urinal Urinal Urinal # Voids 1 0 - Labs CBC & Chem 7: 03/05/21 03:16 03/05/21 03:13 Labs: Abnormal Lab Results - Last 24 Hours (Table) 03/05/21 03/05/21 Range/Units 03:13 03:16 Plt Count 135 L (150-450) k/uL Sodium 136 L (137-145) mmol/L Glucose 103 H (74-99) mg/dL
--- NOTE | 2021-03-05 15:00 | P.PN ---
Subjective Progress Note Date: 03/05/21 The patient was seen at bedside and he feels is back to baseline. Denies of any further confusion episode or any weakness, numbness visual disturbance. He said that when he gets pain medication such as morphine or Holly as he gets the bad reaction to them. Carotid duplex is reported as mild atheromatous plaque with no significant hemodynamic stenosis as visualized. Objective - Vital Signs Vital signs: Vital Signs Temp 98.7 F 03/05/21 12:00 Pulse 56 L 03/05/21 12:00 Resp 18 03/05/21 12:00 BP 147/90 03/05/21 12:00 Pulse Ox 98 03/05/21 12:00 Intake & Output 03/04/21 03/05/21 03/05/21 18:59 06:59 18:59 Intake Total 900 900 725 Output Total 1250 400 900 Balance -350 500 -175 Weight 96.8 kg 93.3 kg Intake: IV 900 900 225 Sodium Chloride 0.9% 1, 900 900 225 000 ml @ 75 mls/hr IV . [id number] [facility] Rx#:[id number] Oral 500 Output: Urine 1250 400 900 Other: Voiding Method Urinal Urinal Urinal # Voids 1 0 - Exam GENERAL: The patient is lying in bed and is not in acute distress. NEUROLOGICAL: Higher mental function: The patient is awake, alert, oriented to self, place and time. Patient is following commands. No aphasia and no neglect. Cranial nerves: The pupils are round, equal and reactive to light and accommodation. Visual broussard are full to confrontation throughout. Extraocular movement is intact no nystagmus is noted. Facial sensation is normal to touch throughout. The facial strength is normal throughout. Hearing is normal bilaterally to hand rub. Tongue is midline and moved [id number] without any difficulty. No dysarthria is noted. Shoulder shrug is normal bilaterally. Motor: The strength is 5 over 5 throughout. Normal tone and bulk. Cerebellum: Normal finger to nose heel to chin bilaterally. Sensation: Sensation is normal to touch throughout. Reflexes (right/left): 2+ throughout-. Plantars are downgoing bilaterally. - Labs CBC & Chem 7: 03/05/21 03:16 03/05/21 03:13 Labs: Abnormal Lab Results - Last 24 Hours (Table) 05/12/21 05/12/21 Range/Units 03:13 03:16 Plt Count 135 L (150-450) k/uL Sodium 136 L (137-145) mmol/L Glucose 103 H (74-99) mg/dL Assessment and Plan Assessment: Transient episode of confusion and ataxia of upper extremity that resolved. Likely due to medication effect (morphine, fentanyl and ativan)-->toxic encephalopathy. Inferior STEMI status post PCI (03/04/2021) Coronary artery disease status post CABG (2018) History of cardiac ablation 6 weeks ago Hyperlipidemia Hypertension Plan: CT of the head was done and there was a reported as no acute hemorrhage, hydrocephalus or mass effect. Currently the patient is on aspirin 81 mg, Plavix 75 mg as well as Lipitor 80 mg daily and he is on them from cardiac perspective which should be sufficient coverage from neurological stand point for secondary stroke prophylaxis (from neurological perspective dual antiplatelets for 21 days then after that to be only on Plavix but will defer that to cardiology team if they want dual antiplateletes). He is also on a heparin drip and will defer management to cardiology team. He is on home Xarelto so will defer use of it to cardiology team. Carotid duplex is reported as mild atheromatous plaque with no significant hemodynamic stenosis as visualized. 2-D echo was reported as mild concentric left ventricle hypertrophy, ejection fraction of 45-50%. Basal inferior left wall motion is hypokinetic the. Basal inferior septal left ventricle wall motion is hypokinetic. Left atrial size is normal. TSH is 3.05 which is normal. Lipid panel: Triglyceride 140, cholesterol 1:30, LDL 72 and HDL 30. Continue cardiac monitoring. Please avoid any sedative/opiates that will affect patient neurological status. Will defer the rest of the medical management to the cardiology team. There is no further neurological work-up. Neurology will sign off. Please reconsult if needed. The plan is discussed with the patient's nurse. Boby Garner MD Neuro-Hospitalist Time with Patient: Less than 30
[2021-03-05 17:51] LABS: Glucose,Whole Blood 137 mg/dL (75-99)
[2021-03-05] MEDS ORDERED: RIVAROXABAN 20 MG TAB PO SCH (21:00)
[2021-03-06] MEDS: ACETAMINOPHEN TAB 325 MG TAB PO PRN ×2 (01:49→08:37)
[2021-03-06 04:47] VITALS: RESP 14
[2021-03-06 04:47] LABS: HCT 42.1 % (39.0-53.0); HGB 14.2 gm/dL (13.0-17.5); MCH 31.5 pg (25.0-35.0); MCHC 33.8 g/dL (31.0-37.0); MCV 93.2 fL (80.0-100.0); Mean Platelet Volume 8.5; Platelet Count 150 k/uL (150-450); RBC 4.51 m/uL (4.30-5.90); WBC 7.9 k/uL (3.8-10.6)
[2021-03-06 05:00] LABS: Calcium 8.7 mg/dL (8.4-10.2); Potassium 4.1 mmol/L (3.5-5.1)
[2021-03-06] MEDS: LOSARTAN 25 MG TAB PO SCH (08:30)
[2021-03-06] MEDS: CLOPIDOGREL 75 MG TAB PO SCH (08:30)
[2021-03-06] MEDS: ATORVASTATIN 80 MG TAB PO SCH (08:30)
[2021-03-06] MEDS: ASPIRIN 81 MG PO SCH (08:30)
[2021-03-06] MEDS: METOPROLOL TARTRATE 25 MG TAB PO SCH (08:31)
--- NOTE | 2021-03-06 10:58 | P.PN ---
Subjective This is a pleasant 70-year-old F medical history significant for coronary artery disease status post bypass grafting while living in [place] 18 months ago with ESCALANTE to LAD, SVG to OM and SVG to D1, paroxysmal atrial fibrillation status post ablation 6 weeks ago, hypertension and dyslipidemia. He follows with Dr. Rodriguez in [facility] and Dr. Poon here in [facility]. He presented to the ER overnight with symptoms of chest pain and was found to be having an inferior wall [place]. He underwent cardiac catheterization revealing 100% occluded proximal RCA, 95% proximal LAD, 70% D1, 90% circumflex, 70% OM1, patent ESCALANTE to LAD, SVGs both occluded. He underwent successful PCI of the proximal RCA. During the procedure he developed confusion. Code stroke was called. Brain CT was unremarkable. Neurology is following. His mentation has improved and is back to baseline. According to the patient he has had this happen before with sedation. Repeat EKG this morning revealed sinus mechanism with improvement of ST changes inferiorly and left bundle type PVC's. Blood pressure 122/79 heart rate 64 afebrile maintaining oxygen saturation on nasal cannula. Laboratory data reviewed, sodium 138, potassium 4.4, creatinine 1.17, troponin trend 0.0 66, 6.11 and 13.7. TSH 3.05. Currently maintained on aspirin 81 mg daily, atorvastatin 80 mg daily, Plavix 75 mg daily and Lopressor 25 mg twice a day. 03/06/2021 Pt seen and examined sitting up in bed in no acute distress. He denies chest pain or shortness of breath. He has been up ambulating without incident. Blood pressure 117/71 heart rate 69 afebrile and maintaining oxygen saturation on room air. Laboratory data reviewed, WBC 7.9, hemoglobin 14.2, platelets 150, sodium 136, potassium 4.1, creatinine 1.08. Telemetry tracings unremarkable. GENERAL: Well-appearing, well-nourished and in no acute distress. NECK: Supple without JVD or thyromegaly. LUNGS: Breath sounds clear to auscultation bilaterally. Respiration equal and unlabored. No wheezes, rales or rhonchi. HEART: Regular rate and rhythm without murmurs, rubs or gallops. S1 and S2 heard. EXTREMITIES: Normal range of motion, no edema. No clubbing or cyanosis. Peripheral pulses intact. Right femoral access site soft, nontender with no evidence of hematoma, ecchymosis or bleeding. ASSESSMENT Acute inferior wall ST elevated myocardial infarction Coronary artery disease status post bypass grafting Hypertension Dyslipidemia Paroxysmal atrial fibrillation status post ablation PLAN Continue current medical regimen. Stable for discharge on current medical regimen. Discussed medications in detail with patient. He will remain on triple therapy for 30-days then aspirin can be discontinued. Follow up appointment with Dr. Poon in 1-week. Nurse Practitioner note has been reviewed, I agree with a documented findings and plan of care. Patient was seen and examined. Objective - Vital Signs Vital signs: Vital Signs Temp 98.4 F 03/06/21 04:00 Pulse 69 03/06/21 04:00 Resp 14 03/06/21 04:00 BP 117/71 03/06/21 04:00 Pulse Ox 96 03/06/21 04:00 Intake & Output 03/05/21 03/06/21 03/06/21 18:59 06:59 18:59 Intake Total 725 400 Output Total 900 1050 375 Balance -175 -650 -375 Weight 89.5 kg Intake: IV 225 Sodium Chloride 0.9% 1, 225 000 ml @ 75 mls/hr IV . [id number] [facility] Rx#:[id number] Oral 500 400 Output: Urine 900 1050 375 Other: Voiding Method Urinal Urinal # Voids 2 3 1 - Labs CBC & Chem 7: 03/06/21 04:09 03/06/21 04:09 Labs: Abnormal Lab Results - Last 24 Hours (Table) 03/05/21 03/06/21 Range/Units 17:49 04:09 Sodium 136 L (137-145) mmol/L POC Glucose (mg/dL) 137 H (75-99) mg/dL
[2021-03-06 12:43] VITALS: BP 116/75; PULSE 70; TEMP 97.9
--- NOTE | 2021-03-06 16:37 | P.DS ---
Providers Date of admission: 03/04/21 01:01 Expected date of discharge: 03/06/21 Attending physician: Katey Collado Consults: 03/04/21 00:59 Consult Physician Urgent Consulting Provider: Amisha Poon Consult Reason/Comments: stemi Do you want consulting provider notified?: Yes 03/04/21 03:39 Consult Physician Routine Consulting Provider: [facility] Consult Reason/Comments: Post Interventional patient Do you want consulting provider notified?: Already Contacted 03/04/21 05:08 Consult Physician Routine Consulting Provider: Boby Garner Consult Reason/Comments: Code Stroke Do you want consulting provider notified?: Yes Primary care physician: Joseph Napier Hospital Course: Final diagnosis Acute inferior wall VA status post stent placement to proximal RCA. Coronary disease history of CABG in December 2019 Paroxysmal atrial fibrillation status post ablation in December 2020 Altered mental status possible metabolic encephalopathy resolved now. ruled out acute CVA. Hypertension Hyperlipidemia DVT prophylaxis patient is already on full anticoagulation. Discharge disposition Patient is being discharged in a stable condition with guarded prognosis to [facility]. Patient will follow-up with Dr. Napier upon discharge. Patient will continue with aspirin, Plavix, Xarelto and will follow- up with cardiology in one week Dr. Poon in the outpatient setting. Total time taken is greater than 35 minutes Hospital course Patient is a 70-year-old male with a known history of coronary artery disease status post CABG in December 2019 and cardiac ablation in December 2020 at [facility] Hypertension, hyperlipidemia and on anticoagulation with Xarelto for 2 months post ablation-stopped 2 days ago presents to ER due to complaints of chest pain. Patient flew from [place] recently and since then he has been working in the [employer]. Yesterday afternoon patient felt dizzy while working in the yard. Around 11 PM patient started having chest pain while watching TV associated dizziness and sometimes radiating to the back and some tingling sensation in the left arm. Patient did take aspirin which did not help him and came to ER for evaluation. Patient does not have sublingual nitroglycerin at home. In the ER patient was found to have ST elevation in the inferior leads with ST depressions in V1 and V2. Started on heparin drip and patient was immediately taken to cardiac catheterization. Patient is currently status post PCI of proximal RCA. He does have CAD including 95% proximal LAD and 70% stenosis circumflex 90% stenosis and OM1 70% stenosis. Code stroke was called from the Lobby Attendant due to altered mental status during the procedure. CT head showed no acute hemorrhage, hydrocephalus or mass-effect. Laboratory data showed troponin 0 0.066, 6.109, 13.7 TSH 3.05 BUN 21 and creatinine 1.21 Coronavirus PCR not detected. 03/06/2021 Patient was seen and evaluated and follow-up with no acute overnight issues with cardiology and neurology closely following. Family was at the bedside and awaiting to be discharged. Per cardiology recommendations patient will continue with aspirin, Plavix, Xarelto for 30 days and then will discuss discontinuing aspirin and will follow-up with cardiology Dr. Poon in one week in the clinic. Patient underwent carotid duplex showing mild atheromatous plaque with no significant hemodynamic stenosis. Currently no reports of chest pain, shortness of breath, or palpitations. Patient is afebrile. No reports of nausea or vomiting and patient is tolerating diet. Patient will be discharged to home today. On exam vital signs are stable. Cardio S1, S2 are muffled. Respiratory shows diminished breath sounds at the bases with no wheezing or rhonchi noted. Abdomen is soft and nontender. Nervous system shows no focal deficits. Please refer to medication reconciliation sheet for a list of medications. Patient Condition at Discharge: Fair Plan - Discharge Summary Discharge Rx Participant: No New Discharge Prescriptions: New Losartan [Cozaar] 12.5 mg PO DAILY tab Atorvastatin [Lipitor] 80 mg PO DAILY #90 tab Clopidogrel [Plavix] 75 mg PO DAILY #90 tab Continue Rivaroxaban [Xarelto] 20 mg PO HS #90 tab Metoprolol Tartrate [Lopressor] 25 mg PO BID Aspirin EC [Ecotrin Low Dose] 81 mg PO DAILY Discontinued diphenhydrAMINE HCL [Benadryl] 25 mg PO HS Atorvastatin [Lipitor] 40 mg PO HS Losartan [Cozaar] 12.5 mg PO BID Discharge Medication List Aspirin EC [Ecotrin Low Dose] 81 mg PO DAILY 03/04/21 [History] Atorvastatin [Lipitor] 80 mg PO DAILY #90 tab 03/04/21 [Rx] Clopidogrel [Plavix] 75 mg PO DAILY #90 tab 03/04/21 [Rx] Metoprolol Tartrate [Lopressor] 25 mg PO BID 03/04/21 [History] Losartan [Cozaar] 12.5 mg PO DAILY tab 03/06/21 [Rx] Rivaroxaban [Xarelto] 20 mg PO HS #90 tab 03/06/21 [Rx] Follow up Appointment(s)/Referral(s): Amisha Poon MD [STAFF PHYSICIAN] - 1 Week (The office will call with follow up appointment. ) Joseph Napier DO [Primary Care Provider] - 1-2 days Patient Instructions/Handouts: Heart Attack (DC), Left Heart Catheterization (DC) Activity/Diet/Wound Care/Special Instructions: Activity Limited until follow-up Follow-up with primary care provider upon discharge Follow-up with cardiology as instructed and scheduled Continue with current medications continue current heart healthy diet offices are closed at time of discharge, please call to make your appointments. Discharge Disposition: HOME SELF-CARE
== END 2021-03-06 13:44 | disposition home or self-care (01) | DRG 246 ==
LOC: EC 00:44 → 2SICU 01:01
PROVIDERS: ADMIT Hospitalist; ATTEND Hospitalist
PROC: B2111ZZ Fluoroscopy of Multiple Coronary Arteries using Low Osmolar Contrast (ICD-10-PCS; principal; 2021-03-04 01:27)
PROC: B2131ZZ Fluoroscopy of Multiple Coronary Artery Bypass Grafts using Low Osmolar Contrast (ICD-10-PCS; principal; 2021-03-04 01:27)
PROC: B2181ZZ Fluoroscopy of Left Internal Mammary Bypass Graft using Low Osmolar Contrast (ICD-10-PCS; principal; 2021-03-04 01:27)
PROC: B3101ZZ Fluoroscopy of Thoracic Aorta using Low Osmolar Contrast (ICD-10-PCS; principal; 2021-03-04 01:27)
PROC: 027135Z Dilation of Coronary Artery, Two Arteries with Two Drug-eluting Intraluminal Devices, Percutaneous Approach (ICD-10-PCS; principal; 2021-03-04 01:27)
DX: I21.19 ST elevation (STEMI) myocardial infarction involving other coronary artery of inferior wall (principal); G92 Toxic encephalopathy; I48.0 Paroxysmal atrial fibrillation; Z20.822 Contact with and (suspected) exposure to COVID-19; E78.00 Pure hypercholesterolemia, unspecified; I25.10 Atherosclerotic heart disease of native coronary artery without angina pectoris; I10 Essential (primary) hypertension; E78.5 Hyperlipidemia, unspecified; T40.2X5A Adverse effect of other opioids, initial encounter; T40.415A Adverse effect of fentanyl or fentanyl analogs, initial encounter; T42.4X5A Adverse effect of benzodiazepines, initial encounter; R27.0 Ataxia, unspecified; E66.9 Obesity, unspecified; Z68.27 Body mass index [BMI] 27.0-27.9, adult; Z79.82 Long term (current) use of aspirin; Z79.01 Long term (current) use of anticoagulants; Z79.899 Other long term (current) drug therapy; Z95.1 Presence of aortocoronary bypass graft; Z98.890 Other specified postprocedural states; Z80.8 Family history of malignant neoplasm of other organs or systems; Z83.3 Family history of diabetes mellitus; Z71.3 Dietary counseling and surveillance; Y92.234 Operating room of hospital as the place of occurrence of the external cause
CPT/HCPCS: 70450; 71045; 80048; 80053; 80061; 82550; 82553; 83690; 83735; 83880; 84443; 84484; 85025; 85027; 85610; 85730; 87635; 93005; 93306; 93455; 93880; 99291

== ENCOUNTER → 2024-04-25 | Outpatient (CLI) | payer MEDICARE ==
[2024-04-25 15:27] LABS: ALT 27 U/L (10-49); AST 28 U/L (14-35); Chol/HDL Ratio 3.08 Ratio; VLDL Calculation 15.92 mg/dL (5.00-40.00)
== END | disposition home or self-care (01) ==
LOC: LABWHC1 08:51
PROVIDERS: ATTEND Nurse Practitioner Adult Health
DX: E78.2 Mixed hyperlipidemia (principal)
CPT/HCPCS: 36415; 80061; 84450; 84460

== ENCOUNTER 2025-05-16 07:22 | Inpatient (IN) | payer MEDICARE ==
[2025-05-16 08:21] LABS: Basophils # (A) 0.03 10*3/uL (0.00-0.10); Basophils % (A) 0.4 %; Eosinophils # (A) 0.05 10*3/uL (0.04-0.35); Eosinophils % (A) 0.7 %; HCT 41.7 % (39.6-50.0); HGB 14.6 g/dL (13.0-17.0); Lymphocytes # (A) 1.51 10*3/uL (0.90-5.00); Lymphocytes % (A) 21.8 %; MCH 32.2 pg (27.0-32.0); MCHC 35.0 g/dL (32.0-37.0); MCV 91.9 fL (80.0-97.0); Monocytes # (A) 0.65 10*3/uL (0.20-1.00); Monocytes % (A) 9.4 %; Neutrophils # (A) 4.69 10*3/uL (1.80-7.70); Neutrophils % (A) 67.6 %; Platelet Count 176 10*3/uL (140-440); RBC 4.54 10*6/uL (4.40-5.60); RDW 12.4 % (11.5-14.5); WBC 6.94 10*3/uL (4.50-10.00)
--- NOTE | 2025-05-16 08:21 | XR ---
EXAMINATION TYPE: XR chest 2V DATE OF EXAM: 05/16/2025 8:15 AM COMPARISON: 03/04/2021 CLINICAL INDICATION: Male, 75 years old with history of Chest Pain, TECHNIQUE: XR chest 2V view(s) obtained. FINDINGS: The heart size is normal. The pulmonary vasculature is normal. The lungs are clear. Sternotomy wires are present from prior CABG. IMPRESSION: 1. No acute pulmonary process. [facility], Workstation: [facility], 05/16/2025 8:19 AM
--- NOTE | 2025-05-16 08:29 | ED ---
Chest Pain HPI - General Chief Complaint: Chest Pain Stated Complaint: Chest heaviness Time Seen by Provider: 05/16/25 07:25 Source: patient Mode of arrival: ambulatory Limitations: no limitations - History of Present Illness Initial Comments: 75-year-old male with past medical history of coronary artery disease status post CABG who presents emergency department reporting chest discomfort. States that his symptoms started at 4 AM this morning and it woke him from sleep. States that the pain is located in his left side of his chest and he describes it as a pressure sensation. Denies any shortness of breath. No associated nausea or vomiting. No pleuritic chest pain. He denies fevers, chills or cough. He did not take anything for his pain before coming in. No associated abdominal pain or diarrhea. No other alleviating, precipitating modifying factors - Related Data Home Medications Medication Instructions Recorded Confirmed Aspirin EC [Ecotrin Low Dose] 81 mg PO DAILY 03/04/21 05/16/25 Metoprolol Tartrate [Lopressor] 12.5 mg PO BID 03/04/21 05/16/25 Celecoxib [CeleBREX] 100 mg PO BID 05/16/25 05/16/25 Glucosamine/Chondr Zhao A Sod [Osteo 1 tab PO DAILY 05/16/25 05/16/25 Bi-Flex Caplet] Krill/Om-3/Dha/Epa/Phospho/Ast 1 cap PO DAILY 05/16/25 05/16/25 [Krill Oil 500 mg Softgel] Losartan [Cozaar] 37.5 mg PO BID 05/16/25 05/16/25 Mv-Min/Folic/K1/Lycopen/Lutein 1 tab PO DAILY 05/16/25 05/16/25 [Centrum Silver Men Tablet] Prevagen 1 cap PO DAILY 05/16/25 05/16/25 Ubidecarenone [Coenzyme Q-10] 100 mg PO HS 05/16/25 05/16/25 Previous Rx's Medication Instructions Recorded Atorvastatin [Lipitor] 80 mg PO DAILY #90 tab 03/04/21 Allergies Allergy/AdvReac Type Severity Reaction Status Date / Time No Known Allergies Allergy Verified 05/16/25 11:25 Review of Systems ROS Statement: Those systems with pertinent positive or pertinent negative responses have been documented in the HPI. ROS Other: All systems not noted in ROS Statement are negative. Past Medical History Past Medical History: Hyperlipidemia, Hypertension History of Any Multi-Drug Resistant Organisms: None Reported Past Surgical History: Ablation, Coronary Bypass/CABG Additional Past Surgical History / Comment(s): CABG (December,), Ablation (December,). Past Anesthesia/Blood Transfusion Reactions: Previous Problems w/ Anesthesia Additional Past Anesthesia/Blood Transfusion Reaction / Comment(s): "i like to stay asleep" Past Psychological History: No Psychological Hx Reported Smoking Status: Never smoker Past Alcohol Use History: None Reported Past Drug Use History: None Reported - Past Family History Father Family Medical History: Cancer Additional Family Medical History / Comment(s): skin cancer Mother Additional Family Medical History / Comment(s): "two intestine blockages". Son(s) Family Medical History: Diabetes Mellitus Additional Family Medical History / Comment(s): type one General Exam Limitations: no limitations General appearance: alert, in no apparent distress Head exam: Present: atraumatic, normocephalic, normal inspection Eye exam: Present: normal appearance, PERRL, EOMI. Absent: scleral icterus, conjunctival injection, periorbital swelling ENT exam: Present: normal exam, mucous membranes moist Neck exam: Present: normal inspection. Absent: tenderness, meningismus, lymphadenopathy Respiratory exam: Present: normal lung sounds bilaterally. Absent: respiratory distress, wheezes, rales, rhonchi, stridor Cardiovascular Exam: Present: regular rate, normal rhythm, normal heart sounds. Absent: systolic murmur, diastolic murmur, rubs, gallop, clicks GI/Abdominal exam: Present: soft, normal bowel sounds. Absent: distended, ten derness, guarding, rebound, rigid Extremities exam: Present: normal inspection, full ROM, normal capillary refill. Absent: tenderness, pedal edema, joint swelling, calf tenderness Back exam: Present: normal inspection Neurological exam: Present: alert, oriented X3, CN II-XII intact Psychiatric exam: Present: normal affect, normal mood Skin exam: Present: warm, dry, intact, normal color. Absent: rash Course Vital Signs 05/16/25 05/16/25 05/16/25 07:23 07:27 08:13 Temperature 98 F Pulse Rate 55 L 50 L Pulse Rate [ 55 L Video Operator ] Respiratory 18 20 Rate Blood Pressure 178/80 150/89 O2 Sat by Pulse 97 98 Oximetry 05/16/25 05/16/25 05/16/25 08:14 09:15 11:32 Temperature 98.4 F Pulse Rate 50 L 58 L Pulse Rate [ Video Operator ] Respiratory 16 20 18 Rate Blood Pressure 158/84 133/69 O2 Sat by Pulse 99 96 Oximetry 05/16/25 13:22 Temperature 98.3 F Pulse Rate 57 L Pulse Rate [ Video Operator ] Respiratory 16 Rate Blood Pressure 137/72 O2 Sat by Pulse 98 Oximetry Chest Pain MDM - MDM Was pt. sent in by a medical professional or institution (, PA, [employer], urgent care, hospital, or intermediate...) When possible be specific @ -No Did you speak to anyone other than the patient for history (EMS, parent, family, police, friend...)? What history was obtained from this source @ -Spoke with for history Did you review nursing and triage notes (agree or disagree)? Why? @ -I reviewed and agree with nursing and triage notes Were old charts reviewed (outside hosp., previous admission, EMS record, old EKG, old radiological studies, urgent care reports/EKG's, intermediate records)? Report findings @ -No old charts were reviewed Differential Diagnosis (chest pain, altered mental status, abdominal pain women, abdominal pain men, vaginal bleeding, weakness, fever, dyspnea, syncope, headache, dizziness, GI bleed, back pain, seizure, CVA, palpatations, mental health, musculoskeletal)? @ -Differential Chest Pain: Stable Angina, Unstable Angina, STEMI, NSTEMI Aortic Dissection, Pneumothorax, Musculoskeletal, Esophageal Spasm GERD, Cholecystitis, Pancreatitis, Zoster, this is not meant to be an all-inclusive list. EKG interpreted by me (3pts min.). @ -Yes which demonstrates sinus rhythm with a rate of 60. CT interval 179. QRS 120. QTc of 447. No acute ST segment elevations or depressions X-rays interpreted by me (1pt min.). @ -yes which demonstrates no acute process CT interpreted by me (1pt min.). @ -Yes which demonstrates fat stranding around the pancreas U/S interpreted by me (1pt. min.). @ -None done What testing was considered but not performed or refused? (CT, X-rays, U/S, labs)? Why? @ -None What meds were considered but not given or refused? Why? @ -None Did you discuss the management of the patient with other professionals (professionals i.e. , PA, [employer], lab, RT, psych nurse, social insurance adviser, patternmaker wood, teacher, certified juvenile probation officer, case manager specialist)? Give summary @ -With Dr. Fuller for admission Was smoking cessation discussed for >3mins.? @ -No Was critical care preformed (if so, how long)? @ -No Were there social determinants of health that impacted care today? How? (Homelessness, low income, unemployed, alcoholism, drug addiction, transportation, low edu. Level, literacy, decrease access to med. care, skilled nursing, rehab)? @ -No Was there de-escalation of care discussed even if they declined (Discuss DNR or withdrawal of care, Hospice)? DNR status @ -No What co-morbidities impacted this encounter? (DM, HTN, Smoking, COPD, CAD, Cancer, CVA, ARF, Chemo, Hep., AIDS, mental health diagnosis, sleep apnea, morbid obesity)? @ -Coronary artery disease Was patient admitted / discharged? Hospital course, mention meds given and route, prescriptions, significant lab abnormalities, going to OR and other pertinent info. @ -Patient seen and evaluated in room 1. Thorough history and physical exam wa s performed. Patient placed on continuous pulse ox and cardiac monitoring. Twelve-lead EKG is obtained. Laboratory studies are conducted. Patient does go for chest x-ray and CT. Pain is likely due to acute pancreatitis however I am still concerned for cardiac issue. Recommended admission for pain control. I will trend the patient's troponins and consult cardiology. Patient was agreeable to this. Spoke with Dr. Fuller for the admission Undiagnosed new problem with uncertain prognosis? @ -No Drug Therapy requiring intensive monitoring for toxicity (Heparin, Nitro, Insulin, Cardizem)? @ -No Were any procedures done? @ -No Diagnosis/symptom? @ -Acute chest pain, history of coronary disease, acute pancreatitis Acute, or Chronic, or Acute on Chronic? @ -Acute Uncomplicated (without systemic symptoms) or Complicated (systemic symptoms)? @ -Complicated Side effects of treatment? @ -No Exacerbation, Progression, or Severe Exacerbation? @ -No Poses a threat to life or bodily function? How? (Chest pain, [place], OR, pneumonia, PE, COPD, DKA, ARF, appy, cholecystitis, CVA, Diverticulitis, Homicidal, Suicidal, threat to staff... and all critical care pts) @ -No Disposition Clinical Impression: Chest pain, Pancreatitis Disposition: ADMITTED IP TO THIS HOSP Condition: Stable Is patient prescribed a controlled substance at d/c from ED?: No Time of Disposition: 10:16 Decision to Admit Reason: Admit from EC Decision Date: 05/16/25 Decision Time: 10:17
[2025-05-16 08:35] LABS: ALT 27 U/L (4-49); AST 25 U/L (17-59); African American GFR (CKD) 64 (>60 ml/min/1.73 sqM); Albumin 4.4 g/dL (3.5-5.0); Alkaline Phosphatase 87 U/L (38-126); Anion Gap 7 mmol/L; Blood Urea Nitrogen 28 mg/dL (9-20); Calcium 9.1 mg/dL (8.4-10.2); Carbon Dioxide 29 mmol/L (22-30); Chloride 104 mmol/L (98-107); Glucose 99 mg/dL (74-99); Lipase 1952 U/L (23-300); Magnesium 2.0 mg/dL (1.6-2.3); Non-African American GFR(CKD) 55 (>60 ml/min/1.73 sqM); Potassium 4.5 mmol/L (3.5-5.1); Sodium 140 mmol/L (137-145); Total Protein 6.9 g/dL (6.3-8.2)
[2025-05-16 08:44] LABS: NT-Pro-B-Type Natriuretic Pept 416 pg/mL
[2025-05-16 08:46] LABS: INR 1.0 (<1.2); Partial Thromboplastin Time 22.3 sec (22.0-30.0); Prothrombin Time 10.7 sec (10.0-12.5)
[2025-05-16] MEDS: MORPHINE SULFATE 4 MG/ML SYRINGE IVP STA (09:10)
--- NOTE | 2025-05-16 09:43 | CT ---
EXAMINATION TYPE: CT abdomen pelvis w con DATE OF EXAM: 05/16/2025 9:11 AM COMPARISON: None. CLINICAL INDICATION: Male, 75 years old with history of elevated lipase, chest pain TECHNIQUE: CT of the abdomen and pelvis after IV contrast. Delayed images through the kidneys and cor onal/sagittal reconstructions performed. Contrast used:100 mL of Isovue 300 with IV Contrast, CT DLP: 1073.4 mGycm, Automated exposure control for dose reduction was used. FINDINGS: LOWER CHEST: Median sternotomy wires. Prominent dependent atelectasis. Heart upper limits of normal i n size without pericardial effusion. ABDOMEN LIVER: A few hepatic cysts measuring up to 5.3 cm. Portal venous system is patent. GALLBLADDER AND BILE DUCTS: Unremarkable. PANCREAS: There is minimal peripancreatic fat stranding at the tail of the pancreas and trace adjacen t free fluid along the inferior aspect of the spleen, axial image 26 and coronal image 72. SPLEEN: Unremarkable. ADRENAL GLANDS: Unremarkable. KIDNEYS AND URETERS: Symmetric uptake and excretion of contrast from both kidneys. A couple cortical cyst left kidney measuring up to 1.3 cm. Bilateral parapelvic cysts measuring up to 1.9 cm. PELVIS BLADDER: No evidence for wall thickening or mass given limitations of exam. REPRODUCTIVE: Prostate gland mildly enlarged 4.8 cm wide. A couple pelvic phleboliths. No abnormal fl uid collection in the pelvis or pelvic lymphadenopathy. ABDOMEN & PELVIS STOMACH AND BOWEL: Tiny hiatal hernia. Diffuse gastric fold thickening may partly relate to nondisten tion. No evidence of bowel obstruction. Scattered nhoc-lg-fhnsiodf stool. No pericolonic inflammatory change. PERITONEUM/RETROPERITONEUM: No evidence of pneumoperitoneum or free fluid. VASCULATURE: No evidence of aortic aneurysm. MUSCULOSKELETAL: Moderate degenerative changes right hip and [id number] on the left. Degenerati ve bony ankylosis SI joints. Hypertrophic facet arthropathy mid to lower lumbar spine. LYMPH NODES: No gross evidence for lymphadenopathy. SOFT TISSUE/ABDOMINAL WALL: Unremarkable IMPRESSION: 1. Subtle stranding around the pancreatic tail. Adjacent trace free fluid along the inferior aspect o f the spleen. Correlate for mild acute interstitial pancreatitis. 2. Diffuse gastric fold thickening. Correlate for gastritis. 3. Mild to moderate stool burden. [facility], , 05/16/2025 9:41 AM
[2025-05-16] MEDS ORDERED: NALOXONE 0.4 MG/ML 1 ML VIAL IV PRN (10:17)
[2025-05-16] MEDS: SODIUM CHLORIDE 0.9% 1,000 ML IV SCH (10:36)
--- NOTE | 2025-05-16 12:49 | P.HPIM ---
History of Present Illness H&P Date: 05/16/25 History of Presenting Illness: Patient is a very pleasant 75-year-old male with a past medical history of CAD status post CABG, hypertension, and hyperlipidemia. He presented to the emergency department with a chief complaint of chest/left flank/back pain. Patient reports awakening around 4 AM with pain beneath his left breast radiating into his back. Patient reports pain was severe and sharp felt as a constant pressure. He denies having any fevers, chills, headache, lightheadedness, dizziness, palpitations, shortness of breath, cough or congestion, nausea, vomiting, abdominal pain or discomfort, difficulties with or changes in urinary or bowel function, or experiencing any numbness/tin gling/weakness/swelling in his extremities. Upon arrival to our facility, patient underwent evaluation in the emergency department. Vital signs upon arrival show blood pressure 178/80, heart rate 55, respiratory rate 18, temp 98.0 F, and SpO2 of 97% on room air. EKG completed showing sinus mechanism at 60 bpm with frequent PACs. Chest x-ray completed negative for acute cardiopulmonary process. CBC unremarkable. Coagulation profile normal findings. BMP showing BUN of 28, creatinine 1.26, GFR 55. Blood glucose 99. Calcium 9.1. Magnesium 2.0. Liver profile unremarkable. Troponin was negative at less than 0.012 and proBNP was 416. Lipase was elevated at 1952. CT abdomen and pelvis with IV contrast completed showing subtle stranding around the pancreatic tail and adjacent trace free fluid along the inferior aspect of the spleen correlating for mild acute interstitial pancreatitis and diffuse gastric fold thickening consistent with gastritis, and mild to moderate stool burden. Patient admitted under our services with consultation to cardiology. Review of systems: Pertinent positives and negatives as discussed in HPI, a complete review of systems was performed and all other systems are negative. Physical exam: Vital signs reviewed and stable. General: Nontoxic, no distress and appears stated age. Derm: Skin warm and dry, normal coloration for ethnicity. Head: Atraumatic, normocephalic and symmetric. Eyes: EOM's intact, no lid lag, and anicteric sclera Mouth: no lip lesions, mucus membranes moist Cardiovascular: regular rate and rhythm with normal S1S2, soft systolic murmur, positive posterior tibial pulses bilaterally, and cap refill < 2 seconds. Lungs: Respirations even, regular, and unlabored on room air. Lungs CTA bilaterally, no rhonchi, no rales, no wheezing, and no accessory muscle usage. Abdominal: soft, nontender to palpation, no guarding, no appreciable organomegaly Ext: ROM intact. No gross muscle atrophy, no edema, no contractures Neuro: Speech clear, face symmetrical and CN II-XII grossly intact with no noted focal neuro deficits Psych: Alert and oriented to person, place, time, and situation. Appropriate and pleasant affect. Assessment and Plan of Care: Acute pancreatitis Gastritis Moderate stool burden IV fluid hydration with lactated Ringer's at 125 cc/h. Obtain triglyceride levels. Calcium level normal finding 9.1. CT abdomen and pelvis with IV contrast completed showing subtle stranding around the pancreatic tail and adjacent trace free fluid along the inferior aspect of the spleen correlating for mild acute interstitial pancreatitis and diffuse gastric fold thickening consistent with gastritis, and mild to moderate stool burden. CT reports gallbladder and bile ducts unremarkable Symptomatic care and pain management with Tylenol 650 mg every 6 hours as needed for mild pain, [place] 5/325 mg tablets every 4 hours as needed for moderate pain, and morphine 4 mg IVP every 4 hours as needed for severe pain. Zofran 4 mg IVP every 6 hours as needed for nausea or vomiting. GI prophylaxis with Protonix. Patient started on MiraLAX 17 g daily. Recommend outpatient follow-up with fireproof door assembler for further evaluation of new onset pancreatitis, patient denies history of pancreatitis, medication changes, underlying disorders and denies alcohol use. Chest pain, likely secondary to acute pancreatitis however secondary to extensive cardiac history will rule out acute coronary event CAD status post CABG Hypertension Hyperlipidemia -Cardiology consulted, appreciate recommendations -Telemetry monitoring -Trend troponins -Continue cardiac medication regimen with aspirin 81 mg daily, atorvastatin 80 mg daily, losartan 37.5 mg twice daily, and metoprolol 12.5 mg twice daily. -Lipid profile with a.m. labs. Data and imaging reviewed: As stated above in HPI CODE STATUS: Full code DVT prophylaxis: Lovenox Discussed with: Patient, patient's at bedside, RN, and ED physician Anticipated discharge date: Pending clinical course Anticipated discharge place: Home Patient was seen independently by Nurse Practitioner. This document was prepared using ED01 dictation software. Please allow for errors in counter help while rare they do occur. Kash Perla NP rendered care for this patient independently, reviewed the findings and plan as documented in the note above and agree with plan. I did not physically speak with or examine the patient on this date. Past Medical History Past Medical History: Hyperlipidemia, Hypertension History of Any Multi-Drug Resistant Organisms: None Reported Past Surgical History: Ablation, Coronary Bypass/CABG Additional Past Surgical History / Comment(s): CABG (December,), Ablation (December,). Past Anesthesia/Blood Transfusion Reactions: Previous Problems w/ Anesthesia Additional Past Anesthesia/Blood Transfusion Reaction / Comment(s): "i like to stay asleep" Past Psychological History: No Psychological Hx Reported Smoking Status: Never smoker Past Alcohol Use History: None Reported Past Drug Use History: None Reported - Past Family History Father Family Medical History: Cancer Additional Family Medical History / Comment(s): skin cancer Mother Additional Family Medical History / Comment(s): "two intestine blockages". Son(s) Family Medical History: Diabetes Mellitus Additional Family Medical History / Comment(s): type one Medications and Allergies Home Medications Medication Instructions Recorded Confirmed Type Aspirin EC [Ecotrin Low Dose] 81 mg PO DAILY 03/04/21 05/16/25 History Atorvastatin [Lipitor] 80 mg PO DAILY #90 tab 03/04/21 05/16/25 Rx Metoprolol Tartrate [Lopressor] 12.5 mg PO BID 03/04/21 05/16/25 History Celecoxib [CeleBREX] 100 mg PO BID 05/16/25 05/16/25 History Glucosamine/Chondr Zhao A Sod [Osteo 1 tab PO DAILY 05/16/25 05/16/25 History Bi-Flex Caplet] Krill/Om-3/Dha/Epa/Phospho/Ast 1 cap PO DAILY 05/16/25 05/16/25 History [Krill Oil 500 mg Softgel] Losartan [Cozaar] 37.5 mg PO BID 05/16/25 05/16/25 History Mv-Min/Folic/K1/Lycopen/Lutein 1 tab PO DAILY 05/16/25 05/16/25 History [Centrum Silver Men Tablet] Prevagen 1 cap PO DAILY 05/16/25 05/16/25 History Ubidecarenone [Coenzyme Q-10] 100 mg PO HS 05/16/25 05/16/25 History Allergies Allergy/AdvReac Type Severity Reaction Status Date / Time No Known Allergies Allergy Verified 05/16/25 11:25 Physical Exam Vitals: Vital Signs Temp Pulse Pulse Resp BP Pulse Ox 05/16/25 11:32 98.4 F 58 L 18 133/69 96 05/16/25 09:15 50 L 20 158/84 99 05/16/25 08:14 16 05/16/25 08:13 55 L 05/16/25 07:27 50 L 20 150/89 98 05/16/25 07:23 98 F 55 L 18 178/80 97 Intake and Output 05/15/25 05/16/25 05/16/25 22:59 06:59 14:59 Other: Weight 95.254 kg Results CBC & Chem 7: 05/16/25 07:31 05/16/25 07:31 Labs: Abnormal Lab Results - Last 24 Hours (Table) 05/16/25 05/16/25 Range/Units 07:31 07:31 MCH 32.2 H (27.0-32.0) pg BUN 28 H (9-20) mg/dL Creatinine 1.26 H (0.66-1.25) mg/dL Lipase 1952 H (23-300) U/L
[2025-05-16] MEDS ORDERED: HYDROcodone/APAP 5-325MG 1 EACH TAB PO PRN (12:50)
[2025-05-16] MEDS ORDERED: MORPHINE SULFATE 4 MG/ML SYRINGE IV PRN (12:50)
[2025-05-16] MEDS ORDERED: ONDANSETRON 4 MG/2 ML VIAL IVP PRN (12:50)
[2025-05-16] MEDS: ACETAMINOPHEN TAB 325 MG TAB PO PRN (14:50)
[2025-05-16] MEDS: LOSARTAN 25 MG TAB PO SCH (20:22)
[2025-05-16] MEDS: METOPROLOL TARTRATE 12.5 MG TAB PO SCH (20:29)
[2025-05-16] MEDS: LACTATED RINGERS 1,000 ML IV SCH (20:29)
[2025-05-17 06:56] LABS: Basophils # (A) 0.02 10*3/uL (0.00-0.10); Basophils % (A) 0.2 %; Eosinophils # (A) 0.02 10*3/uL (0.04-0.35); Eosinophils % (A) 0.2 %; HCT 42.1 % (39.6-50.0); HGB 15.2 g/dL (13.0-17.0); Lymphocytes # (A) 1.20 10*3/uL (0.90-5.00); Lymphocytes % (A) 12.7 %; MCH 33.1 pg (27.0-32.0); MCHC 36.1 g/dL (32.0-37.0); MCV 91.7 fL (80.0-97.0); Monocytes # (A) 0.92 10*3/uL (0.20-1.00); Monocytes % (A) 9.7 %; Neutrophils # (A) 7.26 10*3/uL (1.80-7.70); Neutrophils % (A) 77.0 %; Platelet Count 164 10*3/uL (140-440); RBC 4.59 10*6/uL (4.40-5.60); RDW 12.3 % (11.5-14.5); WBC 9.44 10*3/uL (4.50-10.00)
[2025-05-17 07:15] LABS: African American GFR (CKD) 84 (>60 ml/min/1.73 sqM); Anion Gap 8 mmol/L; Blood Urea Nitrogen 20 mg/dL (9-20); Calcium 8.9 mg/dL (8.4-10.2); Carbon Dioxide 24 mmol/L (22-30); Chloride 105 mmol/L (98-107); Glucose 100 mg/dL (74-99); Non-African American GFR(CKD) 73 (>60 ml/min/1.73 sqM); Potassium 4.5 mmol/L (3.5-5.1); Sodium 137 mmol/L (137-145)
[2025-05-17] MEDS: ASPIRIN 81 MG PO SCH (09:01)
[2025-05-17] MEDS: MULTIVITAMINS, THERA 1 EACH TAB PO SCH (09:02)
[2025-05-17] MEDS: ATORVASTATIN 80 MG TAB PO SCH (09:02)
[2025-05-17] MEDS: PANTOPRAZOLE 40 MG/10 ML VIAL IVP SCH (09:03)
[2025-05-17] MEDS: ENOXAPARIN 40 MG/0.4 ML SYRINGE SQ SCH (09:03)
[2025-05-17 10:30] LABS: Cholesterol 112.00 mg/dL (0.00-200.00); HDL Cholesterol 31.50 mg/dL (40.00-60.00); LDL Cholesterol,Calculated 54.1 mg/dL (0.0-131.0); Triglycerides 132.00 mg/dL (0.00-149.00); VLDL Calculation 26.40 mg/dL (5.00-40.00)
--- NOTE | 2025-05-17 11:23 | P.CRDCN ---
History of Present Illness Consult date: 05/17/25 Consult reason: chest pain History of present illness: This is a 75-year-old male patient of Dr. Poon and also follows with a manufacturing quality technician in [place]. He has a past medical history of coronary artery disease with previous CABG, paroxysmal atrial fibrillation not on anticoagulation and maintaining sinus rhythm, ischemic cardiomyopathy with EF 35%, hypertension, hyperlipidemia. We have been asked to evaluate the patient for chest pain. Patient states that he came into the hospital because he felt like he was having discomfort like that similar to when he had an VT in the past. He states he had an ache in his back and also pain in the left anterior chest area. He denies any pain after eating. He states he had a bowel movement this morning. He denies black or tarry stools, no blood in his stools. He is currently on a clear liquid diet after being diagnosed with pancreatitis. Patient denies any history of pancreatitis. He denies alcohol history no marijuana use and no tobacco use. He has had no recent cardiac medication c rohan. He states his PCP recently switched him from meloxicam which was not helping the arthritis in his knees and started him on Celebrex. Blood pressure 134/70, heart rate 60, pulse ox 95% on room air. Patient states that his blood pressure has been running low at home. -EKG: Sinus rhythm with Q waves in the inferior leads. -Chest x-ray: No acute process. -CT abdomen and pelvis with contrast revealed subtle stranding around the pancreatic tail. Adjacent trace free fluid along the inferior aspect of the spleen. Correlate for mild acute interstitial pancreatitis. Correlate for gastritis. Mild to moderate stool burden. -Laboratory studies: CBC is unremarkable. Electrolytes and renal function are currently normal but patient presented with BUN of 28 and creatinine 1.26. Troponin negative x 3. proBNP 416. Lipase 1952. Triglycerides 132, cholesterol 112, LDL 54. -Home cardiac medications: Aspirin 81 mg daily, atorvastatin 80 mg daily, losartan 37.5 mg twice daily, Lopressor 12.5 mg twice daily. -Cardiac catheterization performed 03/04/2021 revealed 1 patent graft ESCALANTE to LAD, 100% VG to OM1, 100% VG to D1 right dominant. Patient underwent stent to the proximal RCA and stent to the mid RCA. -Echocardiogram performed in the office on 09/27/2023 revealed EF of 42%, mild to moderate TR, mild MR. -[facility] Cardiolite stress test performed in the office on 04/25/2024 revealed n ondiagnostic electrocardiographic stress testing. Probably normal myocardial perfusion imaging with fixed inferior and inferior apical wall defect and normal gated SPECT images suggestive of soft tissue attenuation. No evidence of stress-induced ischemia. Review Of Systems: At the time of my exam: CONSTITUTIONAL: Denies fever or chills. HEENT: Denies blurred vision, vision changes, or eye pain. Denies hemoptysis CARDIOVASCULAR: Denies chest pain. Denies orthopnea. Denies PND. Denies palpitat ions RESPIRATORY: Denies shortness of breath. GASTROINTESTINAL: Denies abdominal pain. Denies nausea or vomiting. HEMATOLOGIC: Denies bleeding disorders. GENITOURINARY: Denies any blood in urine. SKIN: Denies puritis. Denies rash. Physical examination: Gen: This is 75-year-old male in no acute distress. VS: reviewed HEENT: Head is atraumatic, normocephalic. Pupils equal, round. Sclerae is anic teric. NECK: Supple. No JVD. LUNGS: Clear to auscultation. No wheezes or rhonchi. No intercostal retractions. HEART: Regular rate and rhythm. No murmur. ABDOMEN: Soft No tenderness. EXTREMITIES: No pedal edema. No calf tenderness. NEUROLOGICAL: Patient is awake, alert and oriented x3. Assessment: Atypical chest pain, acute coronary syndrome ruled out Chest pain most likely secondary to acute pancreatitis Acute pancreatitis of unclear etiology History of coronary artery disease with previous CABG and PCI Paroxysmal atrial fibrillation not on anticoagulation and maintaining sinus rhythm Ischemic cardiomyopathy with EF 35% with improvement to 42% Hypertension Hyperlipidemia Plan: Resume patient's home cardiac medications Obtain 2-D echocardiogram and Doppler study to assess cardiac structure and function Further recommendations to follow based upon clinical course Thank you kindly for this consultation. Nurse practitioner note has been reviewed, I agree with documented findings and plan of care. Patient was seen and examined. Past Medical History Past Medical History: Hyperlipidemia, Hypertension History of Any Multi-Drug Resistant Organisms: None Reported Past Surgical History: Ablation, Coronary Bypass/CABG Additional Past Surgical History / Comment(s): CABG (December,), Ablation (December,). Past Anesthesia/Blood Transfusion Reactions: Previous Problems w/ Anesthesia Additional Past Anesthesia/Blood Transfusion Reaction / Comment(s): "i like to stay asleep" Past Psychological History: No Psychological Hx Reported Smoking Status: Never smoker Past Alcohol Use History: None Reported Past Drug Use History: None Reported - Past Family History Father Family Medical History: Cancer Additional Family Medical History / Comment(s): skin cancer Mother Additional Family Medical History / Comment(s): "two intestine blockages". Son(s) Family Medical History: Diabetes Mellitus Additional Family Medical History / Comment(s): type one Medications and Allergies Home Medications Medication Instructions Recorded Confirmed Type Aspirin EC [Ecotrin Low Dose] 81 mg PO DAILY 03/04/21 05/16/25 History Atorvastatin [Lipitor] 80 mg PO DAILY #90 tab 03/04/21 05/16/25 Rx Metoprolol Tartrate [Lopressor] 12.5 mg PO BID 03/04/21 05/16/25 History Celecoxib [CeleBREX] 100 mg PO BID 05/16/25 05/16/25 History Glucosamine/Chondr Zhao A Sod [Osteo 1 tab PO DAILY 05/16/25 05/16/25 History Bi-Flex Caplet] Krill/Om-3/Dha/Epa/Phospho/Ast 1 cap PO DAILY 05/16/25 05/16/25 History [Krill Oil 500 mg Softgel] Losartan [Cozaar] 37.5 mg PO BID 05/16/25 05/16/25 History Mv-Min/Folic/K1/Lycopen/Lutein 1 tab PO DAILY 05/16/25 05/16/25 History [Centrum Silver Men Tablet] Prevagen 1 cap PO DAILY 05/16/25 05/16/25 History Ubidecarenone [Coenzyme Q-10] 100 mg PO HS 05/16/25 05/16/25 History Allergies Allergy/AdvReac Type Severity Reaction Status Date / Time No Known Allergies Allergy Verified 05/16/25 11:25 Physical Exam Vitals: Vital Signs Temp Pulse Pulse Resp BP BP Pulse Ox 05/17/25 07:00 98.0 F 60 14 134/70 95 05/17/25 00:58 98.1 F 52 L 16 145/78 96 05/16/25 18:53 98.3 F 48 L 16 138/88 96 05/16/25 13:30 97.9 F 48 L 16 137/76 98 05/16/25 13:22 98.3 F 57 L 16 137/72 98 05/16/25 11:32 98.4 F 58 L 18 133/69 96 Intake and Output 05/16/25 05/17/25 05/17/25 22:59 06:59 14:59 Intake Total 200 Balance 200 Intake: Oral 200 Other: # Voids 2 Weight 95.254 kg Results 05/17/25 06:37 05/17/25 06:37 Cardiac Enzymes 05/16/25 05/16/25 Range/Units 11:51 14:50 Troponin I <0.012 <0.012 (0.000-0.034) ng/mL CBC 05/17/25 Range/Units 06:37 WBC 9.44 (4.50-10.00) 10*3/uL RBC 4.59 (4.40-5.60) 10*6/uL Hgb 15.2 (13.0-17.0) g/dL Hct 42.1 (39.6-50.0) % Plt Count 164 (140-440) 10*3/uL Comprehensive Metabolic Panel 05/17/25 Range/Units 06:37 Sodium 137 (137-145) mmol/L Potassium 4.5 (3.5-5.1) mmol/L Chloride 105 (98-107) mmol/L Carbon Dioxide 24 (22-30) mmol/L BUN 20 (9-20) mg/dL Creatinine 1.01 (0.66-1.25) mg/dL Glucose 100 H (74-99) mg/dL Calcium 8.9 (8.4-10.2) mg/dL Current Medications Generic Name Dose Route Start Last Admin Trade Name Freq PRN Reason Stop Dose Admin Acetaminophen 650 mg 05/16/25 12:50 05/17/25 09:00 Acetaminophen Tab 325 Mg Tab PO 650 mg Q6HR PRN Administration Mild Pain or Fever > 100.5 Hydrocodone Bitart/Acetaminophen 1 each 05/16/25 12:50 Hydrocodone/Apap 5-325mg 1 Each Tab PO Q4HR PRN Moderate Pain (Scale 4 to 6) Aspirin 81 mg 05/17/25 09:00 05/17/25 09:01 Aspirin 81 Mg PO 81 mg DAILY KARLA Administration Atorvastatin Calcium 80 mg 05/17/25 09:00 05/17/25 09:02 Atorvastatin 80 Mg Tab PO 80 mg DAILY KARLA Administration Enoxaparin Sodium 40 mg 05/17/25 09:00 05/17/25 09:03 Enoxaparin 40 Mg/0.4 Ml Syringe SQ 40 mg DAILY KARLA Administration Lactated Ringer's 1,000 mls @ 125 mls/hr 05/16/25 13:00 05/17/25 05:32 Lactated Ringers IV Not Given .Q8H KARLA Losartan Potassium 37.5 mg 05/16/25 21:00 05/17/25 09:01 Losartan 25 Mg Tab PO 37.5 mg BID KARLA Administration Metoprolol Tartrate 12.5 mg 05/16/25 21:00 05/17/25 09:02 Metoprolol Tartrate 12.5 Mg Tab PO 12.5 mg BID KARLA Administration Morphine Sulfate 4 mg 05/16/25 12:50 Morphine Sulfate 4 Mg/Ml Syringe IV Q4HR PRN Severe Pain (Scale 7 to 10) Multivitamins 1 each 05/17/25 09:00 05/17/25 09:02 Multivitamins, Thera 1 Each Tab PO 1 each DAILY KARLA Administration Naloxone HCl 0.2 mg 05/16/25 10:17 Naloxone 0.4 Mg/Ml 1 Ml Vial IV Q2M PRN Opioid Reversal Ondansetron HCl 4 mg 05/16/25 12:50 Ondansetron 4 Mg/2 Ml Vial IVP Q8HR PRN Nausea And Vomiting Pantoprazole Sodium 40 mg 05/17/25 09:00 05/17/25 09:03 Pantoprazole 40 Mg/10 Ml Vial IVP 40 mg DAILY KARLA Administration Polyethylene Glycol 17 gm 05/16/25 14:00 05/17/25 09:03 Polyethylene Glycol 3350 17 Gm Powd.Pack PO Not Given DAILY KARLA Intake and Output 05/16/25 05/17/25 05/17/25 22:59 06:59 14:59 Intake Total 200 Balance 200 Intake: Oral 200 Other: # Voids 2 Weight 95.254 kg 05/17/25 06:37 05/17/25 06:37
--- NOTE | 2025-05-17 13:04 | P.PN ---
Subjective Progress Note Date: 05/17/25 Hospital Course: Patient is a very pleasant 75-year-old male with a past medical history of CAD status post CABG, hypertension, and hyperlipidemia. He presented to the emergency department with a chief complaint of chest/left flank/back pain. Patient reports awakening around 4 AM with pain beneath his left breast radiating into his back. Patient reports pain was severe and sharp felt as a constant pressure. He denies having any fevers, chills, headache, lightheadedness, dizziness, palpitations, shortness of breath, cough or congestion, nausea, vomiting, abdominal pain or discomfort, difficulties with or changes in urinary or bowel function, or experiencing any numbness/tingling/weakness/swelling in his extremities. Upon arrival to our facility, patient underwent evaluation in the emergency department. Vital signs upon arrival show blood pressure 178/80, heart rate 55, respiratory rate 18, temp 98.0 F, and SpO2 of 97% on room air. EKG completed showing sinus mechanism at 60 bpm with frequent PACs. Chest x-ray completed negative for acute cardiopulmonary process. CBC unremarkable. Coagulation profile normal findings. BMP showing BUN of 28, creatinine 1.26, GFR 55. Blood glucose 99. Calcium 9.1. Magnesium 2.0. Liver profile unremarkable. Troponin was negative at less than 0.012 and proBNP was 416. Lipase was elevated at 1952. CT abdomen and pelvis with IV contrast completed showing subtle stranding around the pancreatic tail and adjacent trace free fluid along the inferior aspect of the spleen correlating for mild acute interstitial pancreatitis and diffuse gastric fold thickening consistent with gastritis, and mild to moderate stool burden. Patient admitted under our services with consultation to cardiology.Troponins trended and were all negative at less than 0.012 x 3 draws. Triglyceride levels normal at 132. Calcium level normal finding 8.9. Physical exam: Patient was seen and fully evaluated at bedside this morning. He was resting comfortably and reports resolution of chest/back pain. Patient tolerating clear liquid diet. Discussed with patient and at bedside that we will slowly advance and monitor how he tolerates. Vital signs reviewed and stable. General: Nontoxic, no distress and appears stated age. Derm: Skin warm and dry, normal coloration for ethnicity. Head: Atraumatic, normocephalic and symmetric. Eyes: EOM's intact, no lid lag, and anicteric sclera Mouth: no lip lesions, mucus membranes moist Cardiovascular: regular rate and rhythm with normal S1S2, soft systolic murmur, positive posterior tibial pulses bilaterally, and cap refill < 2 seconds. Lungs: Respirations even, regular, and unlabored on room air. Lungs CTA bilaterally, no rhonchi, no rales, no wheezing, and no accessory muscle usage. Abdominal: soft, nontender to palpation, no guarding, no appreciable organomegaly Ext: ROM intact. No gross muscle atrophy, no edema, no contractures Neuro: Speech clear, face symmetrical and CN II-XII grossly intact with no noted focal neuro deficits Psych: Alert and oriented to person, place, time, and situation. Appropriate and pleasant affect. Assessment and Plan of Care: Acute pancreatitis Gastritis Moderate stool burden IV fluid hydration with lactated Ringer's at 125 cc/h. Triglyceride levels normal at 132. Calcium level normal finding 8.9. CT abdomen and pelvis with IV contrast completed showing subtle stranding around the pancreatic tail and adjacent trace free fluid along the inferior aspect of the spleen correlating for mild acute interstitial pancreatitis and diffuse gastric fold thickening consistent with gastritis, and mild to moderate stool burden. CT reports gallbladder and bile ducts unremarkable Symptomatic care and pain management with Tylenol 650 mg every 6 hours as needed for mild pain, [place] 5/325 mg tablets every 4 hours as needed for moderate pain, and morphine 4 mg IVP every 4 hours as needed for severe pain. Zofran 4 mg IVP every 6 hours as needed for nausea or vomiting. GI prophylaxis with Protonix. Patient started on MiraLAX 17 g daily and reports having a normal BM this morning Patient reports resolution of pain this morning and tolerating clear liquid diet, will advance to full liquid with lunch and low-fat with dinner and monitor how patient tolerates advancement of diet. Recommend outpatient follow-up with cotton washer for further evaluation of new onset pancreatitis, patient denies history of pancreatitis, medication changes, underlying disorders and denies alcohol use. Chest pain, likely secondary to acute pancreatitis however secondary to extensive cardiac history will rule out acute coronary event CAD status post CABG Paroxysmal atrial fibrillation status post ablation, no longer on anticoagulation Hypertension Hyperlipidemia -Cardiology following. Discussed plan of care with cardiac FIELD SERVICE MANAGER and migratory worker. -Telemetry monitoring -Troponins trended and were all negative at less than 0.012 x 3 draws. -Continue cardiac medication regimen with aspirin 81 mg daily, atorvastatin 80 mg daily, losartan 37.5 mg twice daily, and metoprolol 12.5 mg twice daily. -Lipid profile unremarkable with exception of low HDL of 31.50. Echocardiogram to be completed. Data and imaging reviewed: Labs reviewed. Troponins trended and were all negative at less than 0.012 x 3 draws. Triglyceride levels normal at 132. Calcium level normal finding 8.9. CBC unremarkable. BMP normal findings. Blood glucose 100. Lipid profile unremarkable with exception of low HDL of 31.50. -Vital signs reviewed. Blood pressure 134/70, heart rate 60, respiratory rate 14, temp 98.0 F, and SpO2 of 95% on room air CODE STATUS: Full code DVT prophylaxis: Lovenox Discussed with: Patient, patient's at bedside, RN, and migratory worker and cardiac FIELD SERVICE MANAGER Anticipated discharge date: Pending clinical course Anticipated discharge place: Home Patient was seen independently by Nurse Practitioner. This document was prepared using [employer] dictation software. Please allow for errors in tobacco packing machine operator while rare they do occur. Kash Perla, FIELD SERVICE MANAGER rendered care for this patient independently, reviewed the findings and plan as documented in the note above and agree with plan. I did not physically speak with or examine the patient on this date. Objective - Vital Signs Vital signs: Vital Signs Temp 98.0 F 05/17/25 07:00 Pulse 60 05/17/25 07:00 Resp 14 05/17/25 07:00 BP 134/70 05/17/25 07:00 Pulse Ox 95 05/17/25 07:00 FiO2 Intake & Output 05/16/25 05/17/25 05/17/25 18:59 06:59 18:59 Intake Total 200 Balance 200 Weight 95.254 kg 95.254 kg Intake: Oral 200 Other: Voiding Method Toilet # Voids 1 2 # Bowel Movements 1 - Labs CBC & Chem 7: 05/17/25 06:37 05/17/25 06:37 Labs: Abnormal Lab Results - Last 24 Hours (Table) 05/16/25 05/17/25 05/17/25 Range/Units 07:31 06:37 06:37 MCH 33.1 H (27.0-32.0) pg Eosinophils # 0.02 L (0.04-0.35) 10*3/uL BUN 28 H (9-20) mg/dL Creatinine 1.26 H (0.66-1.25) mg/dL Glucose 100 H (74-99) mg/dL Lipase 1952 H (23-300) U/L
--- NOTE | 2025-05-17 13:53 | CA ---
Transthoracic Echo Report Name: Paul De La Garza Age: 75 Gender: M : 1950 Exam Date: 05/17/2025 10:51 Exam Location: [facility] Ht (in): 71 Wt (lb): 210 Ordering Physician: Goldie Tinsley Attending/Referring Phys: [id number], Alvina Futures Trader Iker Hamilton RDCS Procedure CPT: Indications: LVF, CAD Cardiac Hx: Technical Quality: Fair Contrast 1: Total Dose (mL): Contrast 2: Total Dose (mL): MEASUREMENTS (Male / Female) Normal Values 2D ECHO LV Diastolic Diameter PLAX 4.9 cm 4.2 - 5.9 / 3.9 - 5.3 cm LV Systolic Diameter PLAX 4.0 cm IVS Diastolic Thickness 1.3 cm 0.6 - 1.0 / 0.6 - 0.9 cm LVPW Diastolic Thickness 1.3 cm 0.6 - 1.0 / 0.6 - 0.9 cm LV Relative Wall Thickness 0.5 RV Internal Dim ED PLAX 3.3 cm LVOT Diameter 2.0 cm LV Diastolic Volume MOD BP 87.2 cm??? 67 - 155 / 56 - 104 cm??? LV Systolic Volume MOD BP 46.0 cm??? 22 - 58 / 19 - 49 cm??? LV Ejection Fraction MOD BP 47.2 % >= 55 % LV Cardiac Index MOD BP 1045.6 cm???/min???m??? LV Diastolic Volume MOD 4C 101.5 cm??? LV Systolic Volume MOD 4C 49.0 cm??? LV Ejection Fraction MOD 4C 51.7 % LV Cardiac Index MOD 4C 1333.2 cm???/min???m??? LV Diastolic Length 4C 7.8 cm LV Systolic Length 4C 6.2 cm LV Diastolic Volume MOD 2C 60.1 cm??? LV Systolic Volume MOD 2C 39.4 cm??? LV Ejection Fraction MOD 2C 34.4 % LV Cardiac Index MOD 2C 525.6 cm???/min???m??? LV Diastolic Length 2C 6.2 cm LV Systolic Length 2C 5.6 cm M-MODE Aortic Root Diameter MM 4.1 cm LA Systolic Diameter MM 2.0 cm LA Ao Ratio MM 0.5 AV Cusp Separation MM 3.1 cm DOPPLER AV Peak Velocity 88.1 cm/s AV Peak Gradient 3.1 mmHg AV Mean Velocity 62.5 cm/s AV Mean Gradient 1.7 mmHg AV Velocity Time Integral 18.6 cm LVOT Peak Velocity 50.9 cm/s LVOT Peak Gradient 1.0 mmHg LVOT Velocity Time Integral 8.6 cm LVOT Stroke Volume 26.9 cm??? LVOT Stroke Volume Index 12.5 ml/m??? LVOT Cardiac Index 683.0 cm???/min???m??? AV Area Cont Eq vti 1.4 cm??? AV Area Cont Eq pk 1.8 cm??? Mitral E Point Velocity 57.7 cm/s Mitral A Point Velocity 39.2 cm/s Mitral E to A Ratio 1.5 MV Deceleration Time 205.5 ms MV E' Velocity 6.8 cm/s Mitral E to MV E' Ratio 8.5 TR Peak Velocity 149.6 cm/s TR Peak Gradient 8.9 mmHg FINDINGS Left Ventricle Left ventricular ejection fraction is estimated at 50-55%. Mildly increased septal wall thickness. Left ventricular cavity size normal. Basal to mid inferior wall hypokiensia Right Ventricle Normal right ventricular size. Right Atrium Normal right atrial size. No right atrial thrombus or mass seen. Left Atrium Normal left atrial size. No left atrial thrombus or mass present. Mitral Valve No mitral stenosis. Mild mitral regurgitation. Aortic Valve Trileaflet aortic valve. No aortic stenosis. No aortic regurgitation. Tricuspid Valve No tricuspid stenosis. Mild tricuspid regurgitation. Pulmonic Valve No pulmonic stenosis. Mild pulmonic regurgitation. Pericardium Normal pericardium. No pericardial or pleural effusion. Aorta Normal size aortic root and proximal ascending aorta. CONCLUSIONS LVEF 50 to 55% Basal to mid inferior wall hypokinesia Normal RV size and systolic function Mild mitral regurgitation, mild tricuspid regurgitation Previewed by: Dr Daniel Issa (Electronically Signed) Final Date: 17 May 2025 13:04
[2025-05-18 08:53] VITALS: BP 111/79; PULSE 102; RESP 16; TEMP 97.9
--- NOTE | 2025-05-18 10:28 | P.PN ---
Subjective Progress Note Date: 05/18/25 Consult reason: chest pain History of present illness: This is a 75-year-old male patient of Dr. 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 He has a past medical history of coronary artery disease with previous CABG, paroxysmal atrial fibrillation not on anticoagulation and maintaining sinus rhythm, ischemic cardiomyopathy with EF 35%, hypertension, hyperlipidemia. We have been asked to evaluate the patient for chest pain. Patient states that he came into the hospital because he felt like he was having discomfort like that similar to when he had an [place] in the past. He states he had an ache in his back and also pain in the left anterior chest area. He denies any pain after eating. He states he had a bowel movement this morning. He denies black or tarry stools, no blood in his stools. He is currently on a clear liquid diet after being diagnosed with pancreatitis. Patient denies any history of pancreatitis. He denies alcohol history no marijuana use and no tobacco use. He has had no recent cardiac medication change. He states his PCP recently switched him from meloxicam which was not helping the arthritis in his knees and started him on Celebrex. Blood pressure 134/70, heart rate 60, pulse ox 95% on room air. Patient states that his blood pressure has been running low at home. -EKG: Sinus rhythm with Q waves in the inferior leads. -Chest x-ray: No acute process. -CT abdomen and pelvis with contrast revealed subtle stranding around the pancreatic tail. Adjacent trace free fluid along the inferior aspect of the spleen. Correlate for mild acute interstitial pancreatitis. Correlate for gastritis. Mild to moderate stool burden. -Laboratory studies: CBC is unremarkable. Electrolytes and renal function are currently normal but patient presented with BUN of 28 and creatinine 1.26. Troponin negative x 3. proBNP 416. Lipase 1951. Triglycerides 132, cholesterol 112, LDL 54. -Home cardiac medications: Aspirin 81 mg daily, atorvastatin 80 mg daily, losartan 37.5 mg twice daily, Lopressor 12.5 mg twice daily. -Cardiac catheterization performed 03/04/2021 revealed 1 patent graft ESCALANTE to LAD, 100% VG to OM1, 100% VG to D1 right dominant. Patient underwent stent to the proximal RCA and stent to the mid RCA. -Echocardiogram performed in the office on 09/27/2023 revealed EF of 42%, mild to moderate TR, mild MR. -Lexiscan Cardiolite stress test performed in the office on 04/25/2024 revealed nondiagnostic electrocardiographic stress testing. Probably normal myocardial perfusion imaging with fixed inferior and inferior apical wall defect and normal gated SPECT images suggestive of soft tissue attenuation. No evidence of stress-induced ischemia. 05/18/2025 Patient seen and examined. He denies having any chest pain. Abdominal pain is improved. His diet has been advanced. Blood pressure 111/79, heart rate 102, pulse ox 96% on room air. Echocardiogram reveals EF 50 to 55%, basal to mid inferior wall hypokinesia. Mild mitral regurgitation, mild tricuspid regurgitation. Results of the echocardiogram reviewed with the patient. Physical examination: Gen: This is 75-year-old male in no acute distress. VS: reviewed HEENT: Head is atraumatic, normocephalic. Pupils equal, round. Sclerae is anicteric. NECK: Supple. No JVD. LUNGS: Clear to auscultation. No wheezes or rhonchi. No intercostal retractions. HEART: Regular rate and rhythm. No murmur. ABDOMEN: Soft No tenderness. EXTREMITIES: No pedal edema. No calf tenderness. NEUROLOGICAL: Patient is awake, alert and oriented x3. Assessment: Atypical chest pain, acute coronary syndrome ruled out Chest pain most likely secondary to acute pancreatitis Acute pancreatitis of unclear etiology History of coronary artery disease with previous CABG and PCI Paroxysmal atrial fibrillation not on anticoagulation and maintaining sinus rhy thm Ischemic cardiomyopathy with EF 35% with improvement to 42% Hypertension Hyperlipidemia Plan: Continue patient's home cardiac medications Patient is cleared for discharge from cardiology and may follow-up in the office with Dr. Poon in 2 weeks. Nurse practitioner note has been reviewed, I agree with documented findings and plan of care. Patient was seen and examined. Objective - Vital Signs Vital signs: Vital Signs Temp 97.9 F 05/18/25 07:00 Pulse 102 H 05/18/25 07:00 Resp 16 05/18/25 07:00 BP 111/79 05/18/25 07:00 Pulse Ox 96 05/18/25 07:00 FiO2 Intake & Output 05/17/25 05/18/25 05/18/25 18:59 06:59 18:59 Intake Total 1680 118 Balance 1680 118 Intake: Oral 1680 118 Other: Voiding Method Toilet # Voids 3 3 - Labs CBC & Chem 7: 05/17/25 06:37 05/17/25 06:37 Labs: Abnormal Lab Results - Last 24 Hours (Table) 05/17/25 Range/Units 06:37 HDL Cholesterol 31.50 L (40.00-60.00) mg/dL
--- NOTE | 2025-05-18 14:26 | P.DS ---
Providers Date of admission: 05/16/25 10:18 Expected date of discharge: 05/18/25 Attending physician: Aj Fuller Consults: 05/16/25 10:17 Consult Physician Urgent Consulting Provider: [facility] Consult Reason/Comments: acute cp, hx ascad Do you want consulting provider notified?: Yes Primary care physician: [facility] Hospital Course: Discharge Diagnosis: Acute pancreatitis Gastritis Moderate stool burden, resolved. Patient reports normal bowel function and declines MiraLAX at this time. Chest pain, likely secondary to acute pancreatitis however secondary to extensive cardiac history will rule out acute coronary event CAD status post CABG Paroxysmal atrial fibrillation status post ablation, no longer on anticoagulation Hypertension Hyperlipidemia Hospital Course: Patient is a very pleasant 75-year-old male with a past medical history of CAD status post CABG, hypertension, and hyperlipidemia. He presented to the emergency department with a chief complaint of chest/left flank/back pain. Patient reports awakening around 4 AM with pain beneath his left breast radiating into his back. Patient reports pain was severe and sharp felt as a constant pressure. He denies having any fevers, chills, headache, lightheadedness, dizziness, palpitations, shortness of breath, cough or congestion, nausea, vomiting, abdominal pain or discomfort, difficulties with or changes in urinary or bowel function, or experiencing any numbness/tingling/weakness/swelling in his extremities. Upon arrival to our facility, patient underwent evaluation in the emergency department. Vital signs upon arrival show blood pressure 178/80, heart rate 55, respiratory rate 18, temp 98.0 F, and SpO2 of 97% on room air. EKG completed showing sinus mech anism at 60 bpm with frequent PACs. Chest x-ray completed negative for acute cardiopulmonary process. CBC unremarkable. Coagulation profile normal findings. BMP showing BUN of 28, creatinine 1.26, GFR 55. Blood glucose 99. Calcium 9.1. Magnesium 2.0. Liver profile unremarkable. Troponin was negative at less than 0.012 and proBNP was 416. Lipase was elevated at 1952. CT abdomen and pelvis with IV contrast completed showing subtle stranding around the pancreatic tail and adjacent trace free fluid along the inferior aspect of the spleen correlating for mild acute interstitial pancreatitis and diffuse gastric fold thickening consistent with gastritis, and mild to moderate stool burden. Patient admitted under our services with consultation to cardiology.Troponins trended and were all negative at less than 0.012 x 3 draws. Triglyceride levels normal at 132. Calcium level normal finding 8.9. Echocardiogram completed showing a preserved EF of 50 to 55% with basal to mid inferior wall hypokinesia, mild mitral regurgitation, and mild tricuspid regurgitation. Patient had full resolution of previous reported chest/back pain. He is cleared from cardiac perspective for discharge at this time. No medication changes to be made at this time. Patient medically optimized for discharge and to follow-up outpatient with PCP in 1 to 2 days, set staff fitter in 1 to 2 weeks, and ca rdiologist in 2 weeks. Physical exam: Vital signs reviewed and stable. General: Nontoxic, no distress and appears stated age. Derm: Skin warm and dry, normal coloration for ethnicity. Head: Atraumatic, normocephalic and symmetric. Eyes: EOM's intact, no lid lag, and anicteric sclera Mouth: no lip lesions, mucus membranes moist Cardiovascular: regular rate and rhythm with normal S1S2, soft systolic murmur, positive posterior tibial pulses bilaterally, and cap refill < 2 seconds. Lungs: Respirations even, regular, and unlabored on room air. Lungs CTA bilaterally, no rhonchi, no rales, no wheezing, and no accessory muscle usage. Abdominal: soft, nontender to palpation, no guarding, no appreciable organomegaly Ext: ROM intact. No gross muscle atrophy, no edema, no contractures Neuro: Speech clear, face symmetrical and CN II-XII grossly intact with no noted focal neuro deficits Psych: Alert and oriented to person, place, time, and situation. Appropriate and pleasant affect. A total of 35 minutes of time were spent preparing this complex discharge summary. Pt was discharged on 05/18/2025 at 9:52 AM. Patient was seen independently by Nurse Practitioner. This document was prepared using [employer] dictation software. Please allow for errors in supervisor plastic sheets while rare they do occur. Kash Perla NP rendered care for this patient independently, reviewed the findings and plan as documented in the note above. I did not physically speak with or examine the patient on this date. Patient Condition at Discharge: Stable Plan - Discharge Summary Discharge Rx Participant: Yes New Discharge Prescriptions: Continue Prevagen 1 cap PO DAILY Celecoxib [CeleBREX] 100 mg PO BID Losartan [Cozaar] 37.5 mg PO BID Metoprolol Tartrate [Lopressor] 12.5 mg PO BID Aspirin EC [Ecotrin Low Dose] 81 mg PO DAILY Atorvastatin [Lipitor] 80 mg PO DAILY #90 tab Glucosamine/Chondr Zhao A Sod [Osteo Bi-Flex Caplet] 1 tab PO DAILY Krill/Om-3/Dha/Epa/Phospho/Ast [Krill Oil 500 mg Softgel] 1 cap PO DAILY Mv-Min/Folic/K1/Lycopen/Lutein [Centrum Silver Men Tablet] 1 tab PO DAILY Ubidecarenone [Coenzyme Q-10] 100 mg PO HS Discharge Medication List Aspirin EC [Ecotrin Low Dose] 81 mg PO DAILY 03/04/21 [History] Atorvastatin [Lipitor] 80 mg PO DAILY #90 tab 03/04/21 [Rx] Metoprolol Tartrate [Lopressor] 12.5 mg PO BID 03/04/21 [History] Celecoxib [CeleBREX] 100 mg PO BID 05/16/25 [History] Glucosamine/Chondr Zhao A Sod [Osteo Bi-Flex Caplet] 1 tab PO DAILY 05/16/25 [History] Krill/Om-3/Dha/Epa/Phospho/Ast [Krill Oil 500 mg Softgel] 1 cap PO DAILY 05/16/25 [History] Losartan [Cozaar] 37.5 mg PO BID 05/16/25 [History] Mv-Min/Folic/K1/Lycopen/Lutein [Centrum Silver Men Tablet] 1 tab PO DAILY 05/16/25 [History] Prevagen 1 cap PO DAILY 05/16/25 [History] Ubidecarenone [Coenzyme Q-10] 100 mg PO HS 05/16/25 [History] Follow up Appointment(s)/Referral(s): Amisha Poon MD [STAFF PHYSICIAN] - 2 Weeks Christine Vale MD [STAFF PHYSICIAN] - 1 Week Joseph Napier DO [Primary Care Provider] - 1-2 days Patient Instructions/Handouts: Pancreatitis (DC) Activity/Diet/Wound Care/Special Instructions: Activity: As tolerated. Take breaks as needed. Diet: Heart healthy and carb consistent diet. Avoid salts, or foods with hidden salts such as canned or boxed foods and frozen dinners. Extra salt makes your heart work harder and traps the fluid in your body for longer. Special Instructions: Take all of your medications as directed and remember to keep all of your doctor's appointments and follow-up as needed. Thank you for allowing us to participate in your care, it was truly a pleasure having you for our patient!!! Discharge Disposition: HOME SELF-CARE
== END 2025-05-18 10:24 | disposition home or self-care (01) | DRG 440 ==
LOC: EC 07:22 → 1SOBS 10:17 → OBSVTOIN 10:18 → 1SOBS 11:41
PROVIDERS: ADMIT Student in an Organized Health Care Education/Training Program; ATTEND Student in an Organized Health Care Education/Training Program
DX: K85.90 Acute pancreatitis without necrosis or infection, unspecified (principal); E78.5 Hyperlipidemia, unspecified; I10 Essential (primary) hypertension; I48.0 Paroxysmal atrial fibrillation; I25.10 Atherosclerotic heart disease of native coronary artery without angina pectoris; K29.70 Gastritis, unspecified, without bleeding; I25.5 Ischemic cardiomyopathy; I25.2 Old myocardial infarction; Z79.1 Long term (current) use of non-steroidal anti-inflammatories (NSAID); Z95.1 Presence of aortocoronary bypass graft; Z79.899 Other long term (current) drug therapy; Z79.82 Long term (current) use of aspirin
CPT/HCPCS: 36415; 71046; 74177; 80048; 80053; 80061; 83690; 83735; 83880; 84484; 85025; 85610; 85730; 93005; 93306; 96361; 96374; 99285